=== PATIENT | female | born 1955 | race Caucasian/White ===

== ENCOUNTER 2018-02-26 06:36 | Inpatient (IN) | payer MEDICAID ==
[~2018-02-26] VITALS: Ht 154.9 cm; Wt 80.6 kg
[~2018-02-26 06:36] MED LIST: ALBU18HF INH; ALBU6.7H INH; AMOX500T MT; ARIP5TAB13 PO; ATOR10TA PO; BACI28.42 TP; CEFD300C37 PO; CETI10TA18 PO; DOXY100T PO; ESCI20TA PO; FLUT9.9S NAS; GLIP5TAB10 PO; GUAI600T31 PO; IBUP200T49 PO; LEVO750T26 PO; LISI10TA PO; METF500T4 PO; OXYC10TA47 PO; OXYC5TAB3 PO; OXYGEN; PRED10TA PO; PRED20TA PO; TIOT18CA INH; TRAM50TA2 PO
[2018-02-26] MEDS ORDERED: methylPREDNISolone SOD SUCC 125 MG/2 ML IVP ONE (07:00)
[2018-02-26] MEDS ORDERED: SODIUM CHLORIDE FLUSH 10ML SYR IVF ONE (07:00)
[2018-02-26] MEDS ORDERED: MAGNESIUM SULFATE PMX 2GM/50ML 50 ML IV ONE (07:00)
[2018-02-26] MEDS ORDERED: methylPREDNISolone SOD SUCC 125 MG/2 ML ONE (07:35)
[2018-02-26 07:45] LABS: MEAN CORPUSCULAR HEMOGLOBIN 25.8 pg (27.0-34.8); MEAN CORPUSCULAR HGB CONC 32.7 g/dL (32.4-35.8); MEAN CORPUSCULAR VOLUME 78.9 fL (80-100); MEAN PLATELET VOLUME 8.4 fL (7.4-10.4); PLATELET COUNT 221 x10^3/uL (130-400); RED BLOOD COUNT 5.04 x10^6/uL (3.82-5.3); RED CELL DISTRIBUTION WIDTH 16.3 % (9.6-15.2)
[2018-02-26 07:55] LABS: FIO2 40 %
[2018-02-26 07:56] LABS: D-DIMER 0.79 ug/mlFEU (0.00-0.52); INTERNATIONAL NORMALIZED RATIO 1.16 (0.93-1.1)
[2018-02-26 07:59] LABS: ANION GAP 10 mmol/L (5-15); CALCIUM 8.5 mg/dL (8.5-10.1); CHLORIDE 95 mmol/L (98-107); CREATININE 0.83 mg/dL (0.55-1.02)
[2018-02-26 08:02] LABS: TROPONIN I 0.036 ng/mL (0.000-0.045)
[2018-02-26 08:10] LABS: BASOPHILS % (AUTO) 0 % (0-1); EOSINOPHILS % (AUTO) 0 % (1-7); LYMPHOCYTES # (AUTO) 0.97 x10^3/uL (1-3.4); LYMPHOCYTES % (AUTO) 6 % (22-44); MD SCAN; MONOCYTES # (AUTO) 1.33 x10^3/uL (0.2-0.8); MONOCYTES % (AUTO) 8 % (2-9); NEUTROPHILS # (AUTO) 14.81 x10^3/uL (1.8-6.8); NEUTROPHILS % (AUTO) 87 % (42-75)
[2018-02-26] MEDS ORDERED: FENTANYL PF 100 MCG/2ML ONE (08:59)
[2018-02-26] MEDS ORDERED: ENALAPRILAT 1.25 MG/ML, 2ML IVPush PRN (09:00)
[2018-02-26] MEDS ORDERED: POLYETHYLENE GLYCOL 17 GM PACKET PO PRN (09:00)
[2018-02-26] MEDS ORDERED: PROMETHAZINE 25 MG/ML, 1ML IM PRN (09:00)
[2018-02-26] MEDS: ENOXAPARIN 40 MG/0.4 ML SQ SCH (09:00)
[2018-02-26] MEDS ORDERED: ONDANSETRON ODT 4 MG PO PRN (09:00)
[2018-02-26] MEDS ORDERED: BISACODYL 10 MG SUPP PR PRN (09:00)
[2018-02-26] MEDS ORDERED: OMNIPAQUE 350 MG/ML, 100ML BOTTLE ONE (09:20)
[2018-02-26] MEDS ORDERED: FENTANYL PF 100 MCG/2ML IV ONE (09:30)
[2018-02-26] MEDS ORDERED: ACETAMINOPHEN 500 MG TABLET PO ONE (09:30)
[2018-02-26] MEDS ORDERED: ALBUTEROL/IPRATROPIUM 2.5MG/0.5MG, 3 ML NPPB PRN (10:00)
[2018-02-26] MEDS: DOXYCYCLINE 100 MG in DEXTROSE 5% 250 ML IV SCH ×2 (11:59→20:56)
[2018-02-26] MEDS: NS + 20MEQ KCL 1,000 ML IV SCH (11:59)
[2018-02-26] MEDS: ALBUTEROL/IPRATROPIUM 2.5MG/0.5MG, 3 ML NPPB SCH ×5 (12:00→23:55)
[2018-02-26] MEDS: methylPREDNISolone SOD SUCC 125 MG/2 ML IVPush SCH ×3 (12:16→21:01)
[2018-02-26] MEDS: FAMOTIDINE 20 MG/2 ML IVPush SCH ×2 (12:16→21:01)
[2018-02-26] MEDS: NICOTINE 14MG/24 HR PATCH.TD24 TD SCH (12:16)
[2018-02-26] MEDS: SENNA/DOCUSATE TABLET PO SCH (12:16)
[2018-02-26] MEDS: CEFTRIAXONE PMX 1GM/50ML 50 ML IV SCH (16:36)
[2018-02-27] MEDS: ALBUTEROL/IPRATROPIUM 2.5MG/0.5MG, 3 ML NPPB SCH ×5 (02:24→20:10)
[2018-02-27] MEDS: methylPREDNISolone SOD SUCC 125 MG/2 ML IVPush SCH ×2 (03:59→09:07)
[2018-02-27 04:46] LABS: MEAN CORPUSCULAR HEMOGLOBIN 26.6 pg (27.0-34.8); MEAN CORPUSCULAR VOLUME 80.6 fL (80-100); PLATELET COUNT 267 x10^3/uL (130-400); RED BLOOD COUNT 4.83 x10^6/uL (3.82-5.3); RED CELL DISTRIBUTION WIDTH 16.1 % (9.6-15.2)
[2018-02-27 04:49] LABS: ALANINE AMINOTRANSFERASE 16 U/L (12-78); ALBUMIN 2.7 g/dL (3.4-5.0); ANION GAP 8 mmol/L (5-15); CALCIUM 8.5 mg/dL (8.5-10.1); CHLORIDE 102 mmol/L (98-107); CREATININE 1.13 mg/dL (0.55-1.02)
[2018-02-27 04:51] LABS: ALKALINE PHOSPHATASE 124 U/L (45-117); BILIRUBIN,TOTAL 0.3 mg/dL (0.2-1.0); TOTAL PROTEIN 7.2 g/dL (6.4-8.2)
[2018-02-27] MEDS: NS + 20MEQ KCL 1,000 ML IV SCH ×2 (05:14→17:03)
[2018-02-27 05:36] LABS: BASOPHILS # (AUTO) 0.01 x10^3/uL (0-0.1); BASOPHILS % (AUTO) 0 % (0-1); EOSINOPHILS % (AUTO) 0 % (1-7); LYMPHOCYTES # (AUTO) 0.46 x10^3/uL (1-3.4); LYMPHOCYTES % (AUTO) 3 % (22-44); MD SCAN; MONOCYTES # (AUTO) 0.34 x10^3/uL (0.2-0.8); MONOCYTES % (AUTO) 2 % (2-9); NEUTROPHILS # (AUTO) 16.34 x10^3/uL (1.8-6.8); NEUTROPHILS % (AUTO) 95 % (42-75)
[2018-02-27] MEDS: ENOXAPARIN 40 MG/0.4 ML SQ SCH (09:07)
[2018-02-27] MEDS: FAMOTIDINE 20 MG/2 ML IVPush SCH ×2 (09:07→21:17)
[2018-02-27] MEDS: DOXYCYCLINE 100 MG in DEXTROSE 5% 250 ML IV SCH ×2 (09:08→21:39)
[2018-02-27] MEDS: SENNA/DOCUSATE TABLET PO SCH (09:08)
[2018-02-27] MEDS: NICOTINE 14MG/24 HR PATCH.TD24 TD SCH (09:08)
[2018-02-27] MEDS: LORazepam 2 MG/ML, 1ML IVPush PRN ×2 (11:29→19:43)
[2018-02-27] MEDS: CEFTRIAXONE PMX 1GM/50ML 50 ML IV SCH (14:08)
[2018-02-27] MEDS: methylPREDNISolone SOD SUCC 40 MG/ML IVPush SCH ×2 (15:32→21:17)
[2018-02-27] MEDS: INSULIN LISPRO 100 UNITS/ML, PEN SQ-INSULIN SCH ×2 (17:02→21:21)
[2018-02-27 17:22] VITALS: BP 116/65
[2018-02-27 19:18] VITALS: BP 135/79
[2018-02-27] MEDS: GUAIFENESIN/DM 200-20MG, 10ML UDC PO PRN (19:43)
[2018-02-27] MEDS: INSULIN GLARGINE 100 UNITS/ML, PEN SQ-INSULIN SCH (21:20)
[2018-02-28 00:33] LABS: MICROSCOPIC INDICATED
[2018-02-28 00:45] LABS: CULTURE INDICATED? YES
[2018-02-28 00:52] VITALS: BP 154/84
[2018-02-28] MEDS: GUAIFENESIN/DM 200-20MG, 10ML UDC PO PRN (01:42)
[2018-02-28] MEDS: LORazepam 2 MG/ML, 1ML IVPush PRN ×3 (01:42→10:50)
[2018-02-28] MEDS: ALBUTEROL/IPRATROPIUM 2.5MG/0.5MG, 3 ML NPPB SCH ×6 (02:00→22:00)
[2018-02-28] MEDS: NS + 20MEQ KCL 1,000 ML IV SCH (03:00)
[2018-02-28] MEDS: methylPREDNISolone SOD SUCC 40 MG/ML IVPush SCH ×2 (03:06→09:19)
[2018-02-28 06:03] LABS: ANION GAP 4 mmol/L (5-15); CALCIUM 9.3 mg/dL (8.5-10.1); CHLORIDE 102 mmol/L (98-107); CREATININE 0.68 mg/dL (0.55-1.02)
[2018-02-28 06:56] VITALS: BP 160/90
[2018-02-28 07:47] LABS: MEAN CORPUSCULAR HEMOGLOBIN 26.7 pg (27.0-34.8); MEAN CORPUSCULAR HGB CONC 33.1 g/dL (32.4-35.8); MEAN CORPUSCULAR VOLUME 80.7 fL (80-100); MEAN PLATELET VOLUME 8.5 fL (7.4-10.4); PLATELET COUNT 250 x10^3/uL (130-400); RED CELL DISTRIBUTION WIDTH 16.1 % (9.6-15.2)
[2018-02-28 07:57] LABS: BASOPHILS # (AUTO) 0.02 x10^3/uL (0-0.1); BASOPHILS % (AUTO) 0 % (0-1); EOSINOPHILS % (AUTO) 0 % (1-7); LYMPHOCYTES % (AUTO) 3 % (22-44); MD SCAN; MONOCYTES # (AUTO) 0.27 x10^3/uL (0.2-0.8); MONOCYTES % (AUTO) 2 % (2-9); NEUTROPHILS # (AUTO) 15.28 x10^3/uL (1.8-6.8); NEUTROPHILS % (AUTO) 95 % (42-75)
[2018-02-28] MEDS: SENNA/DOCUSATE TABLET PO SCH (09:00)
[2018-02-28] MEDS: FAMOTIDINE 20 MG/2 ML IVPush SCH (09:19)
[2018-02-28] MEDS: DOXYCYCLINE 100 MG in DEXTROSE 5% 250 ML IV SCH (09:19)
[2018-02-28] MEDS: ENOXAPARIN 40 MG/0.4 ML SQ SCH (09:19)
[2018-02-28] MEDS: NICOTINE 14MG/24 HR PATCH.TD24 TD SCH (09:19)
[2018-02-28] MEDS: INSULIN GLARGINE 100 UNITS/ML, PEN SQ-INSULIN SCH ×2 (09:20→21:33)
[2018-02-28] MEDS: INSULIN LISPRO 100 UNITS/ML, PEN SQ-INSULIN SCH ×4 (09:20→21:33)
[2018-02-28 13:03] VITALS: BP 154/83
[2018-02-28] MEDS ORDERED: VANCOMYCIN PER PHARMACY MC PRN (16:30)
[2018-02-28] MEDS: ALPRazolam 1MG TABLET PO PRN (16:38)
[2018-02-28] MEDS: CEFTRIAXONE PMX 1GM/50ML 50 ML IV SCH (16:40)
[2018-02-28] MEDS ORDERED: PHARMACOKINETIC MONITORING MC PRN (17:00)
[2018-02-28] MEDS: VANCOMYCIN 1,500 MG in SODIUM CHLORIDE 0.9% 250 ML IV SCH (17:38)
[2018-02-28 18:50] VITALS: BP 151/91
[2018-03-01] MEDS: GUAIFENESIN/DM 200-20MG, 10ML UDC PO PRN (01:28)
[2018-03-01 01:46] VITALS: BP 143/81
[2018-03-01 05:47] LABS: BASOPHILS % (AUTO) 0 % (0-1); EOSINOPHILS % (AUTO) 0 % (1-7); LYMPHOCYTES # (AUTO) 0.58 x10^3/uL (1-3.4); LYMPHOCYTES % (AUTO) 5 % (22-44); MD NO; MEAN CORPUSCULAR HEMOGLOBIN 26.1 pg (27.0-34.8); MEAN CORPUSCULAR HGB CONC 32.2 g/dL (32.4-35.8); MEAN CORPUSCULAR VOLUME 81.1 fL (80-100); MEAN PLATELET VOLUME 8.3 fL (7.4-10.4); MONOCYTES # (AUTO) 0.38 x10^3/uL (0.2-0.8); MONOCYTES % (AUTO) 3 % (2-9); NEUTROPHILS # (AUTO) 10.67 x10^3/uL (1.8-6.8); NEUTROPHILS % (AUTO) 92 % (42-75); PLATELET COUNT 267 x10^3/uL (130-400); RED BLOOD COUNT 4.63 x10^6/uL (3.82-5.3); RED CELL DISTRIBUTION WIDTH 16.4 % (9.6-15.2)
[2018-03-01] MEDS: ALPRazolam 1MG TABLET PO PRN ×3 (06:29→23:19)
[2018-03-01 06:53] VITALS: BP 147/85
[2018-03-01] MEDS: ALBUTEROL/IPRATROPIUM 2.5MG/0.5MG, 3 ML NPPB SCH ×5 (07:03→21:47)
[2018-03-01] MEDS: INSULIN LISPRO 100 UNITS/ML, PEN SQ-INSULIN SCH ×4 (08:07→21:35)
[2018-03-01] MEDS: ENOXAPARIN 40 MG/0.4 ML SQ SCH (08:08)
[2018-03-01] MEDS: NICOTINE 14MG/24 HR PATCH.TD24 TD SCH (08:08)
[2018-03-01] MEDS: INSULIN GLARGINE 100 UNITS/ML, PEN SQ-INSULIN SCH ×2 (08:08→21:35)
[2018-03-01] MEDS: SENNA/DOCUSATE TABLET PO SCH (08:08)
[2018-03-01] MEDS: VANCOMYCIN 1,500 MG in SODIUM CHLORIDE 0.9% 250 ML IV SCH (11:00)
[2018-03-01 12:44] VITALS: BP 122/67
[2018-03-01] MEDS: CEFTRIAXONE PMX 1GM/50ML 50 ML IV SCH (14:47)
[2018-03-01 20:15] VITALS: BP 134/73
[2018-03-01] MEDS: ACETAMINOPHEN 325 MG TABLET PO PRN (23:19)
[2018-03-02 00:28] VITALS: BP 119/71
[2018-03-02] MEDS: ALBUTEROL/IPRATROPIUM 2.5MG/0.5MG, 3 ML NPPB SCH ×5 (06:00→22:00)
[2018-03-02] MEDS: INSULIN LISPRO 100 UNITS/ML, PEN SQ-INSULIN SCH ×4 (07:00→21:04)
[2018-03-02 07:14] VITALS: BP 121/75
[2018-03-02] MEDS: PIPERACILLIN/TAZO/PMX 4.5GM 100 ML IV SCH ×3 (07:25→23:12)
[2018-03-02] MEDS: NICOTINE 14MG/24 HR PATCH.TD24 TD SCH (08:41)
[2018-03-02] MEDS: SENNA/DOCUSATE TABLET PO SCH (08:42)
[2018-03-02] MEDS: INSULIN GLARGINE 100 UNITS/ML, PEN SQ-INSULIN SCH ×2 (08:42→21:04)
[2018-03-02] MEDS: ENOXAPARIN 40 MG/0.4 ML SQ SCH (08:42)
[2018-03-02 12:25] VITALS: BP 134/76
[2018-03-02 19:04] VITALS: BP 130/73
[2018-03-02] MEDS: ACETAMINOPHEN 325 MG TABLET PO PRN (20:47)
[2018-03-03 00:32] VITALS: BP 116/72
[2018-03-03 06:18] LABS: BASOPHILS # (AUTO) 0.02 x10^3/uL (0-0.1); BASOPHILS % (AUTO) 0 % (0-1); EOSINOPHILS # (AUTO) 0.08 x10^3/uL (0-0.4); EOSINOPHILS % (AUTO) 1 % (1-7); LYMPHOCYTES # (AUTO) 1.02 x10^3/uL (1-3.4); LYMPHOCYTES % (AUTO) 14 % (22-44); MD NO; MEAN CORPUSCULAR HEMOGLOBIN 26.2 pg (27.0-34.8); MEAN CORPUSCULAR HGB CONC 32.5 g/dL (32.4-35.8); MEAN CORPUSCULAR VOLUME 80.8 fL (80-100); MEAN PLATELET VOLUME 7.7 fL (7.4-10.4); MONOCYTES # (AUTO) 0.34 x10^3/uL (0.2-0.8); MONOCYTES % (AUTO) 5 % (2-9); NEUTROPHILS # (AUTO) 5.97 x10^3/uL (1.8-6.8); NEUTROPHILS % (AUTO) 80 % (42-75); PLATELET COUNT 292 x10^3/uL (130-400); RED BLOOD COUNT 5.03 x10^6/uL (3.82-5.3); RED CELL DISTRIBUTION WIDTH 16.5 % (9.6-15.2)
[2018-03-03 06:33] VITALS: BP 118/73
[2018-03-03] MEDS: ALBUTEROL/IPRATROPIUM 2.5MG/0.5MG, 3 ML NPPB SCH ×5 (06:47→21:58)
[2018-03-03] MEDS: INSULIN LISPRO 100 UNITS/ML, PEN SQ-INSULIN SCH ×4 (07:00→21:00)
[2018-03-03] MEDS: PIPERACILLIN/TAZO/PMX 4.5GM 100 ML IV SCH ×2 (07:20→16:45)
[2018-03-03] MEDS: ENOXAPARIN 40 MG/0.4 ML SQ SCH (08:49)
[2018-03-03] MEDS: NICOTINE 14MG/24 HR PATCH.TD24 TD SCH (08:50)
[2018-03-03] MEDS: INSULIN GLARGINE 100 UNITS/ML, PEN SQ-INSULIN SCH ×2 (08:50→22:10)
[2018-03-03] MEDS: SENNA/DOCUSATE TABLET PO SCH (08:50)
[2018-03-03 14:08] VITALS: BP 147/75
[2018-03-03 19:23] VITALS: BP 136/72
[2018-03-03] MEDS: ACETAMINOPHEN 325 MG TABLET PO PRN (20:02)
[2018-03-04] MEDS: PIPERACILLIN/TAZO/PMX 4.5GM 100 ML IV SCH (00:52)
[2018-03-04 00:58] VITALS: BP 127/75
[2018-03-04] MEDS: ALBUTEROL/IPRATROPIUM 2.5MG/0.5MG, 3 ML NPPB SCH ×3 (06:00→14:00)
[2018-03-04 06:45] VITALS: BP 121/74
[2018-03-04] MEDS ORDERED: CEFD300C37 PO (06:56)
[2018-03-04] MEDS: NICOTINE 14MG/24 HR PATCH.TD24 TD SCH (08:54)
[2018-03-04] MEDS: ENOXAPARIN 40 MG/0.4 ML SQ SCH (08:55)
[2018-03-04] MEDS: INSULIN LISPRO 100 UNITS/ML, PEN SQ-INSULIN SCH ×2 (08:55→11:00)
[2018-03-04] MEDS: INSULIN GLARGINE 100 UNITS/ML, PEN SQ-INSULIN SCH (08:56)
[2018-03-04] MEDS: SENNA/DOCUSATE TABLET PO SCH (09:00)
[2018-03-04] MEDS ORDERED: CEFDINIR 300 MG CAPSULE PO SCH (09:00)
== END 2018-03-04 15:18 | disposition home or self-care (01) | DRG 189 ==
LOC: ED 07:55 → EDIP 08:00 → ED 08:14 → CCU 09:24 → 3NE 02-27 16:51
PROVIDERS: ADMIT Internal Medicine; ATTEND Internal Medicine
PROC: 5A09357 Assistance with Respiratory Ventilation, Less than 24 Consecutive Hours, Continuous Positive Airway Pressure (ICD-10-PCS; principal; 2018-02-26)
DX: J96.20 Acute and chronic respiratory failure, unspecified whether with hypoxia or hypercapnia (principal); N17.0 Acute kidney failure with tubular necrosis; Z99.11 Dependence on respirator [ventilator] status; R78.81 Bacteremia; I27.20 Pulmonary hypertension, unspecified; E66.01 Morbid (severe) obesity due to excess calories; E87.1 Hypo-osmolality and hyponatremia; J44.1 Chronic obstructive pulmonary disease with (acute) exacerbation; B19.20 Unspecified viral hepatitis C without hepatic coma; E11.9 Type 2 diabetes mellitus without complications; E87.6 Hypokalemia; F12.90 Cannabis use, unspecified, uncomplicated; F17.210 Nicotine dependence, cigarettes, uncomplicated; F32.9 Major depressive disorder, single episode, unspecified; G47.33 Obstructive sleep apnea (adult) (pediatric); G89.29 Other chronic pain; I10 Essential (primary) hypertension; K43.9 Ventral hernia without obstruction or gangrene; Z80.1 Family history of malignant neoplasm of trachea, bronchus and lung; Z82.49 Family history of ischemic heart disease and other diseases of the circulatory system; Z99.3 Dependence on wheelchair; Z99.81 Dependence on supplemental oxygen; Z68.33 Body mass index [BMI] 33.0-33.9, adult
CPT/HCPCS: 36415; 36600; 71045; 71275; 74177; 80048; 80053; 81001; 82040; 82803; 82947; 82962; 83605; 83880; 84484; 85025; 85379; 85610; 87040; 87077; 87081; 87086; 87181; 87186; 93005; 93306; 94640; 94660; 96374; 96375; 96376; J0696; J1650; J2543; J3010; J3370; J3480; J7060; J7620; Q9967; J1815; J2060; J2920; J2930; J3475; J7050; S0028

== ENCOUNTER 2018-04-04 13:16 | Emergency (ER) | payer MEDICAID ==
[~2018-04-04] VITALS: Ht 154.9 cm; Wt 83.0 kg
[~2018-04-04 13:16] MED LIST changes: -METF500T4 PO; +METF500T5 PO
[2018-04-04] MEDS ORDERED: DIPHENHYDRAMINE 50 MG/ML, 1ML IVPush ONE (13:30)
[2018-04-04] MEDS ORDERED: KETOROLAC 30 MG/1 ML IVPush ONE (13:30)
[2018-04-04] MEDS ORDERED: METHOCARBAMOL 750 MG TABLET PO ONE (13:30)
[2018-04-04] MEDS ORDERED: DIPHENHYDRAMINE 50 MG/ML, 1ML ONE (13:36)
[2018-04-04] MEDS ORDERED: METHOCARBAMOL 750 MG TABLET ONE (13:36)
[2018-04-04] MEDS ORDERED: KETOROLAC 30 MG/1 ML ONE (13:36)
[2018-04-04 13:53] LABS: BASOPHILS # (AUTO) 0.02 x10^3/uL (0-0.1); BASOPHILS % (AUTO) 0 % (0-1); EOSINOPHILS # (AUTO) 0.05 x10^3/uL (0-0.4); EOSINOPHILS % (AUTO) 1 % (1-7); LYMPHOCYTES # (AUTO) 1.63 x10^3/uL (1-3.4); LYMPHOCYTES % (AUTO) 28 % (22-44); MD NO; MEAN CORPUSCULAR HEMOGLOBIN 25.9 pg (27.0-34.8); MEAN CORPUSCULAR HGB CONC 32.8 g/dL (32.4-35.8); MEAN CORPUSCULAR VOLUME 78.9 fL (80-100); MEAN PLATELET VOLUME 8.4 fL (7.4-10.4); MONOCYTES # (AUTO) 0.49 x10^3/uL (0.2-0.8); MONOCYTES % (AUTO) 8 % (2-9); NEUTROPHILS # (AUTO) 3.72 x10^3/uL (1.8-6.8); NEUTROPHILS % (AUTO) 63 % (42-75); PLATELET COUNT 280 x10^3/uL (130-400); RED BLOOD COUNT 5.35 x10^6/uL (3.82-5.3); RED CELL DISTRIBUTION WIDTH 16.4 % (9.6-15.2)
[2018-04-04 13:58] LABS: INTERNATIONAL NORMALIZED RATIO 0.94 (0.93-1.1); PROTHROMBIN TIME 9.8 Seconds (9.6-11.5)
[2018-04-04 14:01] LABS: ALANINE AMINOTRANSFERASE 28 U/L (12-78); ALBUMIN 3.5 g/dL (3.4-5.0); ANION GAP 4 mmol/L (5-15); CALCIUM 8.7 mg/dL (8.5-10.1); CHLORIDE 106 mmol/L (98-107); CREATININE 0.63 mg/dL (0.55-1.02)
[2018-04-04 14:06] LABS: ALKALINE PHOSPHATASE 132 U/L (45-117); BILIRUBIN,TOTAL 0.2 mg/dL (0.2-1.0); TROPONIN I < 0.015 ng/mL (0.000-0.045)
[2018-04-04] MEDS ORDERED: OMNIPAQUE 350 MG/ML, 100ML BOTTLE ONE (14:33)
[2018-04-04 15:24] VITALS: BP 157/90
== END 2018-04-04 15:26 | disposition home or self-care (01) ==
LOC: ED 15:01
DX: M54.6 Pain in thoracic spine (principal); Z86.73 Personal history of transient ischemic attack (TIA), and cerebral infarction without residual deficits
CPT/HCPCS: 36415; 71275; 80053; 84484; 85025; 85610; 85730; 93005; 96374; 96375; 99285; J1200; J1885; Q9967

== ENCOUNTER 2018-04-08 21:12 | Inpatient (IN) | payer MEDICAID ==
[~2018-04-08] VITALS: Ht 154.9 cm; Wt 80.9 kg
[2018-04-08] MEDS ORDERED: ONDANSETRON 2MG/ML, 2ML ONE (21:41)
[2018-04-08] MEDS ORDERED: MORPHINE SULFATE 4 MG/ML, 1ML ONE (21:41)
[2018-04-08] MEDS ORDERED: ONDANSETRON 2MG/ML, 2ML IVPush ONE (22:00)
[2018-04-08] MEDS ORDERED: MORPHINE SULFATE 4 MG/ML, 1ML IVPush PRN (22:00)
[2018-04-08] MEDS ORDERED: ALBUTEROL SULFATE 2.5 MG/3 ML NPPB ONE (22:00)
[2018-04-08 22:03] LABS: ALANINE AMINOTRANSFERASE 16 U/L (12-78); ALBUMIN 3.7 g/dL (3.4-5.0); ANION GAP 8 mmol/L (5-15); CALCIUM 9.5 mg/dL (8.5-10.1); CHLORIDE 94 mmol/L (98-107); CREATININE 0.66 mg/dL (0.55-1.02)
[2018-04-08] MEDS ORDERED: ALBUTEROL SULFATE 2.5 MG/3 ML ONE (22:05)
[2018-04-08 22:10] LABS: ALKALINE PHOSPHATASE 116 U/L (45-117); BILIRUBIN,TOTAL 0.7 mg/dL (0.2-1.0); TOTAL PROTEIN 7.7 g/dL (6.4-8.2); TROPONIN I < 0.015 ng/mL (0.000-0.045)
[2018-04-08 22:21] LABS: BASOPHILS # (AUTO) 0.05 x10^3/uL (0-0.1); BASOPHILS % (AUTO) 1 % (0-1); EOSINOPHILS # (AUTO) 0.03 x10^3/uL (0-0.4); EOSINOPHILS % (AUTO) 0 % (1-7); LYMPHOCYTES # (AUTO) 1.15 x10^3/uL (1-3.4); LYMPHOCYTES % (AUTO) 11 % (22-44); MD SCAN; MEAN CORPUSCULAR HEMOGLOBIN 25.9 pg (27.0-34.8); MEAN CORPUSCULAR HGB CONC 33.2 g/dL (32.4-35.8); MEAN PLATELET VOLUME 8.5 fL (7.4-10.4); MONOCYTES # (AUTO) 0.56 x10^3/uL (0.2-0.8); MONOCYTES % (AUTO) 5 % (2-9); NEUTROPHILS % (AUTO) 84 % (42-75); PLATELET COUNT 321 x10^3/uL (130-400); RED BLOOD COUNT 5.87 x10^6/uL (3.82-5.3); RED CELL DISTRIBUTION WIDTH 16.4 % (9.6-15.2)
[2018-04-08 23:33] LABS: MICROSCOPIC NOT IND
[2018-04-08 23:42] LABS: CULTURE INDICATED? NO
[2018-04-08] MEDS ORDERED: SODIUM CHLORIDE 0.9% 1,000 ML IV ONE (23:57)
[2018-04-09] MEDS ORDERED: ONDANSETRON 2MG/ML, 2ML IVPush PRN
[2018-04-09] MEDS ORDERED: PANTOPRAZOLE 40 MG IV IVPush ONE
[2018-04-09] MEDS ORDERED: MORPHINE SULFATE 4 MG/ML, 1ML IVPush PRN
[2018-04-09] MEDS ORDERED: OMNIPAQUE 350 MG/ML, 100ML BOTTLE ONE (00:02)
[2018-04-09] MEDS ORDERED: FLUT1DIS3 INH (00:02)
[2018-04-09] MEDS ORDERED: TIOT18CA INH (00:03)
[2018-04-09] MEDS ORDERED: GUAIFENESIN/DM 200-20MG, 10ML UDC PO PRN (00:30)
[2018-04-09] MEDS ORDERED: ACETAMINOPHEN 325 MG TABLET PO PRN (00:30)
[2018-04-09] MEDS ORDERED: hydrALAzine 20 MG/ML, 1ML IVPush PRN (00:30)
[2018-04-09] MEDS ORDERED: ALBUTEROL SULFATE 2.5 MG/3 ML HHN PRN ×2 (00:30→01:24)
[2018-04-09 01:22] VITALS: BP 106/61
[2018-04-09] MEDS: SODIUM CHLORIDE 0.9% 1,000 ML IV SCH ×3 (01:58→19:46)
[2018-04-09] MEDS: SUCRALFATE 1 GM/10 ML UDC PO SCH ×5 (02:14→21:28)
[2018-04-09] MEDS: morphine SULFATE 10 MG/ML, 1ML IVPush PRN ×6 (02:15→22:03)
[2018-04-09] MEDS: ONDANSETRON 2MG/ML, 2ML IVPush PRN ×3 (03:48→18:40)
[2018-04-09] MEDS: ALBUTEROL/IPRATROPIUM 2.5MG/0.5MG, 3 ML NPPB SCH ×5 (04:09→20:10)
[2018-04-09 05:19] LABS: BASOPHILS # (AUTO) 0.03 x10^3/uL (0-0.1); BASOPHILS % (AUTO) 0 % (0-1); EOSINOPHILS # (AUTO) 0.02 x10^3/uL (0-0.4); EOSINOPHILS % (AUTO) 0 % (1-7); LYMPHOCYTES # (AUTO) 1.67 x10^3/uL (1-3.4); LYMPHOCYTES % (AUTO) 16 % (22-44); MD NO; MEAN CORPUSCULAR HEMOGLOBIN 26.1 pg (27.0-34.8); MEAN CORPUSCULAR VOLUME 78.9 fL (80-100); MEAN PLATELET VOLUME 8.3 fL (7.4-10.4); MONOCYTES # (AUTO) 0.76 x10^3/uL (0.2-0.8); MONOCYTES % (AUTO) 7 % (2-9); NEUTROPHILS # (AUTO) 7.91 x10^3/uL (1.8-6.8); NEUTROPHILS % (AUTO) 76 % (42-75); PLATELET COUNT 290 x10^3/uL (130-400); RED BLOOD COUNT 5.35 x10^6/uL (3.82-5.3); RED CELL DISTRIBUTION WIDTH 16.1 % (9.6-15.2)
[2018-04-09 05:31] LABS: ANION GAP 6 mmol/L (5-15); CALCIUM 9.2 mg/dL (8.5-10.1); CHLORIDE 94 mmol/L (98-107)
[2018-04-09 05:33] LABS: CREATININE 0.78 mg/dL (0.55-1.02)
[2018-04-09 07:10] VITALS: BP 96/58
[2018-04-09] MEDS: PANTOPRAZOLE 40 MG IV IVPush SCH ×2 (07:51→21:28)
[2018-04-09] MEDS: NICOTINE 21 MG/24 HR PATCH.TD24 TD SCH (07:52)
[2018-04-09] MEDS ORDERED: IPRATROPIUM 0.5 MG/2.5 ML INHA HHN SCH (09:00)
[2018-04-09] MEDS: FLUTICASONE/VILANTEROL 100-25MCG/INH INH SCH (09:00)
[2018-04-09 13:08] VITALS: BP 103/62
[2018-04-09 19:37] VITALS: BP 122/66
[2018-04-10 00:37] VITALS: BP 117/69
[2018-04-10] MEDS: morphine SULFATE 10 MG/ML, 1ML IVPush PRN ×6 (01:57→22:58)
[2018-04-10] MEDS: SODIUM CHLORIDE 0.9% 1,000 ML IV SCH (04:46)
[2018-04-10] MEDS: ALBUTEROL/IPRATROPIUM 2.5MG/0.5MG, 3 ML NPPB SCH ×4 (07:00→19:39)
[2018-04-10 07:50] VITALS: BP 106/67
[2018-04-10] MEDS: PANTOPRAZOLE 40 MG IV IVPush SCH ×2 (08:05→21:01)
[2018-04-10] MEDS: SUCRALFATE 1 GM/10 ML UDC PO SCH ×4 (08:05→21:01)
[2018-04-10] MEDS: NICOTINE 21 MG/24 HR PATCH.TD24 TD SCH (08:08)
[2018-04-10] MEDS: FLUTICASONE/VILANTEROL 100-25MCG/INH INH SCH (08:14)
[2018-04-10 12:09] VITALS: BP 107/58
[2018-04-10 18:52] VITALS: BP 102/57
[2018-04-11 01:54] VITALS: BP 112/66
[2018-04-11] MEDS: morphine SULFATE 10 MG/ML, 1ML IVPush PRN ×6 (02:55→22:30)
[2018-04-11 06:09] LABS: CALCIUM 8.7 mg/dL (8.5-10.1); CHLORIDE 103 mmol/L (98-107)
[2018-04-11 06:12] LABS: ALBUMIN 2.9 g/dL (3.4-5.0); ANION GAP 4 mmol/L (5-15); CREATININE 0.53 mg/dL (0.55-1.02)
[2018-04-11] MEDS: ALBUTEROL/IPRATROPIUM 2.5MG/0.5MG, 3 ML NPPB SCH ×4 (07:00→19:07)
[2018-04-11 07:01] VITALS: BP 105/71
[2018-04-11] MEDS ORDERED: POTASSIUM CHLORIDE 40 MEQ in SODIUM CHLORIDE 0.9% 500 ML IV ONE (07:30)
[2018-04-11] MEDS: NICOTINE 21 MG/24 HR PATCH.TD24 TD SCH (07:43)
[2018-04-11] MEDS: PANTOPRAZOLE 40 MG IV IVPush SCH ×2 (07:43→22:30)
[2018-04-11] MEDS: SUCRALFATE 1 GM/10 ML UDC PO SCH ×4 (07:43→22:30)
[2018-04-11] MEDS: FLUTICASONE/VILANTEROL 100-25MCG/INH INH SCH (07:59)
[2018-04-11] MEDS: POLYETHYLENE GLYCOL 17 GM PACKET PO PRN (10:05)
[2018-04-11 12:59] LABS: BASOPHILS # (AUTO) 0.02 x10^3/uL (0-0.1); BASOPHILS % (AUTO) 0 % (0-1); EOSINOPHILS # (AUTO) 0.06 x10^3/uL (0-0.4); EOSINOPHILS % (AUTO) 1 % (1-7); LYMPHOCYTES # (AUTO) 1.41 x10^3/uL (1-3.4); LYMPHOCYTES % (AUTO) 24 % (22-44); MD NO; MEAN CORPUSCULAR HGB CONC 32.5 g/dL (32.4-35.8); MEAN PLATELET VOLUME 8.2 fL (7.4-10.4); MONOCYTES # (AUTO) 0.44 x10^3/uL (0.2-0.8); MONOCYTES % (AUTO) 7 % (2-9); NEUTROPHILS # (AUTO) 3.99 x10^3/uL (1.8-6.8); NEUTROPHILS % (AUTO) 68 % (42-75); PLATELET COUNT 236 x10^3/uL (130-400); RED BLOOD COUNT 4.45 x10^6/uL (3.82-5.3); RED CELL DISTRIBUTION WIDTH 16.7 % (9.6-15.2)
[2018-04-11 13:42] VITALS: BP 126/70
[2018-04-11 20:04] VITALS: BP 118/66
[2018-04-12 00:31] VITALS: BP 161/81
[2018-04-12] MEDS: morphine SULFATE 10 MG/ML, 1ML IVPush PRN ×2 (02:13→06:52)
[2018-04-12] MEDS: ALBUTEROL/IPRATROPIUM 2.5MG/0.5MG, 3 ML NPPB SCH ×4 (06:35→20:00)
[2018-04-12 06:56] LABS: BASOPHILS # (AUTO) 0.02 x10^3/uL (0-0.1); BASOPHILS % (AUTO) 0 % (0-1); EOSINOPHILS # (AUTO) 0.04 x10^3/uL (0-0.4); EOSINOPHILS % (AUTO) 1 % (1-7); LYMPHOCYTES # (AUTO) 1.26 x10^3/uL (1-3.4); LYMPHOCYTES % (AUTO) 23 % (22-44); MD NO; MEAN CORPUSCULAR HGB CONC 32.6 g/dL (32.4-35.8); MEAN CORPUSCULAR VOLUME 79.8 fL (80-100); MEAN PLATELET VOLUME 8.4 fL (7.4-10.4); MONOCYTES # (AUTO) 0.38 x10^3/uL (0.2-0.8); MONOCYTES % (AUTO) 7 % (2-9); NEUTROPHILS # (AUTO) 3.89 x10^3/uL (1.8-6.8); NEUTROPHILS % (AUTO) 70 % (42-75); PLATELET COUNT 262 x10^3/uL (130-400); RED BLOOD COUNT 4.66 x10^6/uL (3.82-5.3); RED CELL DISTRIBUTION WIDTH 16.6 % (9.6-15.2)
[2018-04-12 07:06] LABS: ALBUMIN 2.8 g/dL (3.4-5.0); CALCIUM 8.9 mg/dL (8.5-10.1); CREATININE 0.92 mg/dL (0.55-1.02)
[2018-04-12 07:16] LABS: ANION GAP 4 mmol/L (5-15); CHLORIDE 99 mmol/L (98-107)
[2018-04-12 07:52] VITALS: BP 119/55
[2018-04-12] MEDS ORDERED: morphine SULFATE 10 MG/ML, 1ML IVPush PRN (09:00)
[2018-04-12] MEDS: FLUTICASONE/VILANTEROL 100-25MCG/INH INH SCH (09:00)
[2018-04-12] MEDS: PANTOPRAZOLE 40 MG IV IVPush SCH ×2 (09:10→20:47)
[2018-04-12] MEDS: SUCRALFATE 1 GM/10 ML UDC PO SCH ×4 (09:10→20:47)
[2018-04-12] MEDS: NICOTINE 21 MG/24 HR PATCH.TD24 TD SCH (09:11)
[2018-04-12] MEDS: FERROUS SULFATE 325 MG TABLET PO SCH ×2 (09:11→20:47)
[2018-04-12] MEDS: SENNA/DOCUSATE TABLET PO PRN ×2 (09:11→20:47)
[2018-04-12] MEDS: POLYETHYLENE GLYCOL 17 GM PACKET PO PRN (09:11)
[2018-04-12] MEDS: MORPHINE SULFATE 4 MG/ML, 1ML IVPush PRN ×3 (11:34→23:09)
[2018-04-12 13:10] VITALS: BP 112/66
[2018-04-12 18:48] VITALS: BP 94/64
[2018-04-12] MEDS: LACTULOSE 10 GM/15 ML UDC PO PRN (20:47)
[2018-04-13 01:38] VITALS: BP 100/66
[2018-04-13] MEDS: MORPHINE SULFATE 4 MG/ML, 1ML IVPush PRN ×4 (04:01→20:29)
[2018-04-13 05:19] LABS: ALBUMIN 2.9 g/dL (3.4-5.0); ANION GAP 5 mmol/L (5-15); CALCIUM 9.1 mg/dL (8.5-10.1); CHLORIDE 98 mmol/L (98-107)
[2018-04-13 05:20] LABS: CREATININE 0.54 mg/dL (0.55-1.02)
[2018-04-13 05:25] LABS: BASOPHILS % (AUTO) 0 % (0-1); EOSINOPHILS # (AUTO) 0.06 x10^3/uL (0-0.4); EOSINOPHILS % (AUTO) 1 % (1-7); LYMPHOCYTES % (AUTO) 21 % (22-44); MD SCAN; MEAN CORPUSCULAR HEMOGLOBIN 26.3 pg (27.0-34.8); MEAN CORPUSCULAR VOLUME 79.8 fL (80-100); MEAN PLATELET VOLUME 9.2 fL (7.4-10.4); MONOCYTES # (AUTO) 0.39 x10^3/uL (0.2-0.8); MONOCYTES % (AUTO) 7 % (2-9); NEUTROPHILS # (AUTO) 4.16 x10^3/uL (1.8-6.8); NEUTROPHILS % (AUTO) 72 % (42-75); PLATELET COUNT 258 x10^3/uL (130-400); RED BLOOD COUNT 4.98 x10^6/uL (3.82-5.3); RED CELL DISTRIBUTION WIDTH 16.8 % (9.6-15.2)
[2018-04-13 06:06] LABS: HEMOGLOBIN A1C 6.9 % (4.2-6.3)
[2018-04-13] MEDS: ALBUTEROL/IPRATROPIUM 2.5MG/0.5MG, 3 ML NPPB SCH ×4 (07:00→20:30)
[2018-04-13 07:35] VITALS: BP 108/68
[2018-04-13] MEDS: FLUTICASONE/VILANTEROL 100-25MCG/INH INH SCH (09:00)
[2018-04-13] MEDS ORDERED: PROPOFOL 10 MG/ML, 20ML ONE (10:01)
[2018-04-13] MEDS ORDERED: HYDROcodone/APAP 7.5-325MG/15ML UDC PO PRN (10:30)
[2018-04-13] MEDS ORDERED: OXYcodone 5 MG/5 ML ORAL.SOL UDC PO PRN (10:30)
[2018-04-13] MEDS ORDERED: ACETAMINOPHEN 325 MG TABLET PO PRN (10:30)
[2018-04-13 11:22] VITALS: BP 103/63
[2018-04-13 12:11] VITALS: BP 133/60
[2018-04-13] MEDS: LACTULOSE 10 GM/15 ML UDC PO PRN ×2 (14:03→20:28)
[2018-04-13] MEDS: CLOTRIMAZOLE TROCHES 10 MG PO SCH ×3 (14:03→20:29)
[2018-04-13] MEDS: SENNA/DOCUSATE TABLET PO PRN ×2 (14:03→20:29)
[2018-04-13] MEDS: PANTOPRAZOLE 40 MG IV IVPush SCH ×2 (14:03→20:28)
[2018-04-13] MEDS: NICOTINE 21 MG/24 HR PATCH.TD24 TD SCH (14:04)
[2018-04-13] MEDS: FERROUS SULFATE 325 MG TABLET PO SCH ×2 (14:04→20:29)
[2018-04-13] MEDS: POLYETHYLENE GLYCOL 17 GM PACKET PO PRN (14:04)
[2018-04-13] MEDS: SUCRALFATE 1 GM/10 ML UDC PO SCH ×2 (17:35→20:28)
[2018-04-13 20:13] VITALS: BP 128/72
[2018-04-14 01:55] VITALS: BP 127/70
[2018-04-14] MEDS: MORPHINE SULFATE 4 MG/ML, 1ML IVPush PRN ×2 (02:28→10:53)
[2018-04-14 05:06] LABS: ALBUMIN 2.9 g/dL (3.4-5.0); ANION GAP 7 mmol/L (5-15); CALCIUM 8.8 mg/dL (8.5-10.1); CHLORIDE 98 mmol/L (98-107)
[2018-04-14] MEDS: CLOTRIMAZOLE TROCHES 10 MG PO SCH ×5 (05:29→21:09)
[2018-04-14] MEDS: ALBUTEROL/IPRATROPIUM 2.5MG/0.5MG, 3 ML NPPB SCH ×4 (06:45→19:14)
[2018-04-14 08:30] VITALS: BP 131/75
[2018-04-14] MEDS: LACTULOSE 10 GM/15 ML UDC PO PRN (10:52)
[2018-04-14] MEDS: SUCRALFATE 1 GM/10 ML UDC PO SCH ×4 (10:52→21:09)
[2018-04-14] MEDS: POLYETHYLENE GLYCOL 17 GM PACKET PO PRN (10:52)
[2018-04-14] MEDS: SENNA/DOCUSATE TABLET PO PRN (10:53)
[2018-04-14] MEDS: FERROUS SULFATE 325 MG TABLET PO SCH ×2 (10:53→21:08)
[2018-04-14] MEDS: PANTOPRAZOLE 40 MG IV IVPush SCH ×2 (10:53→21:09)
[2018-04-14] MEDS: FLUTICASONE/VILANTEROL 100-25MCG/INH INH SCH (10:53)
[2018-04-14 14:30] VITALS: BP 123/64
[2018-04-14] MEDS ORDERED: GADOBUTROL 7.5 MMOL/7.5 ML VIAL ONE (15:07)
[2018-04-14] MEDS: NICOTINE 21 MG/24 HR PATCH.TD24 TD SCH (16:08)
[2018-04-14] MEDS ORDERED: FLUCONAZOLE 200 MG/100 ML 100 ML IV SCH (17:30)
[2018-04-14 19:40] VITALS: BP 112/69
[2018-04-15 01:13] VITALS: BP 129/76
[2018-04-15 05:05] LABS: BASOPHILS # (AUTO) 0.04 x10^3/uL (0-0.1); BASOPHILS % (AUTO) 1 % (0-1); EOSINOPHILS # (AUTO) 0.09 x10^3/uL (0-0.4); EOSINOPHILS % (AUTO) 1 % (1-7); LYMPHOCYTES # (AUTO) 1.44 x10^3/uL (1-3.4); LYMPHOCYTES % (AUTO) 24 % (22-44); MD NO; MEAN CORPUSCULAR HEMOGLOBIN 26.1 pg (27.0-34.8); MEAN CORPUSCULAR HGB CONC 32.6 g/dL (32.4-35.8); MEAN CORPUSCULAR VOLUME 80.1 fL (80-100); MEAN PLATELET VOLUME 8.6 fL (7.4-10.4); MONOCYTES # (AUTO) 0.44 x10^3/uL (0.2-0.8); MONOCYTES % (AUTO) 7 % (2-9); NEUTROPHILS # (AUTO) 3.97 x10^3/uL (1.8-6.8); NEUTROPHILS % (AUTO) 66 % (42-75); PLATELET COUNT 287 x10^3/uL (130-400); RED BLOOD COUNT 4.61 x10^6/uL (3.82-5.3); RED CELL DISTRIBUTION WIDTH 16.5 % (9.6-15.2)
[2018-04-15 05:16] LABS: ANION GAP 6 mmol/L (5-15); CALCIUM 8.9 mg/dL (8.5-10.1); CHLORIDE 97 mmol/L (98-107); CREATININE 0.61 mg/dL (0.55-1.02)
[2018-04-15] MEDS: CLOTRIMAZOLE TROCHES 10 MG PO SCH ×3 (05:57→13:59)
[2018-04-15] MEDS: ALBUTEROL/IPRATROPIUM 2.5MG/0.5MG, 3 ML NPPB SCH ×3 (06:45→14:24)
[2018-04-15 09:11] VITALS: BP 117/73
[2018-04-15] MEDS: FLUTICASONE/VILANTEROL 100-25MCG/INH INH SCH (09:15)
[2018-04-15] MEDS: SUCRALFATE 1 GM/10 ML UDC PO SCH ×2 (09:15→12:15)
[2018-04-15] MEDS: PANTOPRAZOLE 40 MG IV IVPush SCH (09:16)
[2018-04-15] MEDS: FERROUS SULFATE 325 MG TABLET PO SCH (09:16)
[2018-04-15] MEDS: NICOTINE 21 MG/24 HR PATCH.TD24 TD SCH (09:17)
[2018-04-15] MEDS ORDERED: NICO-487 TD (13:49)
[2018-04-15] MEDS ORDERED: OMEP20CA14 PO (13:49)
[2018-04-15] MEDS ORDERED: METH500T97 PO (13:49)
[2018-04-15] MEDS ORDERED: FERR-51 PO (13:49)
[2018-04-15] MEDS ORDERED: SUCR1ORA5 PO (13:49)
[2018-04-15] MEDS ORDERED: SENN1TAB7 PO (13:49)
[2018-04-15] MEDS ORDERED: CLOT10TR PO (13:49)
[2018-04-15] MEDS ORDERED: POLY17PO5 PO (13:49)
[2018-04-15] MEDS ORDERED: ACET325T14 PO (13:49)
== END 2018-04-15 15:41 | disposition home or self-care (01) | DRG 384 ==
LOC: ED 23:59 → SUATTDRO 04-09 00:07 → EDIP 04-09 00:23 → 3NE 04-09 01:18
PROVIDERS: ADMIT Hospitalist; ATTEND Hospitalist
PROC: 0DB68ZX Excision of Stomach, Via Natural or Artificial Opening Endoscopic, Diagnostic (ICD-10-PCS; principal; 2018-04-13 09:00)
DX: K26.9 Duodenal ulcer, unspecified as acute or chronic, without hemorrhage or perforation (principal); E87.1 Hypo-osmolality and hyponatremia; J96.11 Chronic respiratory failure with hypoxia; K29.80 Duodenitis without bleeding; K25.9 Gastric ulcer, unspecified as acute or chronic, without hemorrhage or perforation; D72.829 Elevated white blood cell count, unspecified; E11.9 Type 2 diabetes mellitus without complications; E87.6 Hypokalemia; F12.90 Cannabis use, unspecified, uncomplicated; F17.210 Nicotine dependence, cigarettes, uncomplicated; G47.33 Obstructive sleep apnea (adult) (pediatric); G89.29 Other chronic pain; I10 Essential (primary) hypertension; I27.20 Pulmonary hypertension, unspecified; J44.9 Chronic obstructive pulmonary disease, unspecified; T39.395A Adverse effect of other nonsteroidal anti-inflammatory drugs [NSAID], initial encounter; Y92.89 Other specified places as the place of occurrence of the external cause; K43.9 Ventral hernia without obstruction or gangrene; K59.00 Constipation, unspecified; Z99.81 Dependence on supplemental oxygen; B19.20 Unspecified viral hepatitis C without hepatic coma; E66.9 Obesity, unspecified; Z68.33 Body mass index [BMI] 33.0-33.9, adult
CPT/HCPCS: 36415; 74018; 99285; J7613; J7620; 70450; 72156; 74177; 80048; 80053; 81003; 82040; 82274; 82728; 83036; 83540; 83550; 83690; 83735; 84100; 84484; 85025; 88305; 88342; 93005; 94640; 96374; 96375; A9585; J2405; J2704; J3480; Q9967; C9113; G0461; J1450; J2270; J7030; J7040

== ENCOUNTER 2018-04-22 13:48 | Observation (INO) | payer MEDICAID ==
[~2018-04-22] VITALS: Ht 154.9 cm; Wt 75.9 kg
[~2018-04-22 13:48] MED LIST changes: +ACET325T14 PO; +CLOT10TR PO; +FERR-51 PO; +FLUT1DIS3 INH; +METH500T97 PO; +NICO-487 TD; +OMEP20CA14 PO; +POLY17PO5 PO; +SENN1TAB7 PO; +SUCR1ORA5 PO
[2018-04-22] MEDS ORDERED: ALBUTEROL/IPRATROPIUM 2.5MG/0.5MG, 3 ML ONE ×2 (14:16→16:02)
[2018-04-22] MEDS ORDERED: SODIUM CHLORIDE FLUSH 10ML SYR IVF ONE (14:30)
[2018-04-22] MEDS ORDERED: ALBUTEROL/IPRATROPIUM 2.5MG/0.5MG, 3 ML NPPB ONE ×2 (14:30→16:00)
[2018-04-22] MEDS ORDERED: methylPREDNISolone SOD SUCC 125 MG/2 ML IVP ONE (14:30)
[2018-04-22 14:40] LABS: BASOPHILS # (AUTO) 0.04 x10^3/uL (0-0.1); BASOPHILS % (AUTO) 0 % (0-1); EOSINOPHILS % (AUTO) 1 % (1-7); LYMPHOCYTES # (AUTO) 0.82 x10^3/uL (1-3.4); LYMPHOCYTES % (AUTO) 8 % (22-44); MD NO; MEAN CORPUSCULAR HEMOGLOBIN 26.7 pg (27.0-34.8); MEAN PLATELET VOLUME 8.1 fL (7.4-10.4); MONOCYTES # (AUTO) 0.68 x10^3/uL (0.2-0.8); MONOCYTES % (AUTO) 7 % (2-9); NEUTROPHILS # (AUTO) 8.87 x10^3/uL (1.8-6.8); NEUTROPHILS % (AUTO) 84 % (42-75); PLATELET COUNT 321 x10^3/uL (130-400); RED BLOOD COUNT 4.53 x10^6/uL (3.82-5.3); RED CELL DISTRIBUTION WIDTH 17.4 % (9.6-15.2)
[2018-04-22 14:50] LABS: ALBUMIN 3.1 g/dL (3.4-5.0); ANION GAP 6 mmol/L (5-15); CALCIUM 8.5 mg/dL (8.5-10.1); CHLORIDE 102 mmol/L (98-107)
[2018-04-22] MEDS ORDERED: methylPREDNISolone SOD SUCC 125 MG/2 ML ONE (14:53)
[2018-04-22] MEDS ORDERED: SODIUM CHLORIDE 0.9% 1,000 ML IV SCH (16:47)
[2018-04-22] MEDS ORDERED: GUAIFENESIN/DM 200-20MG, 10ML UDC PO PRN (17:00)
[2018-04-22] MEDS ORDERED: POLYETHYLENE GLYCOL 17 GM PACKET PO PRN (17:00)
[2018-04-22] MEDS ORDERED: ACETAMINOPHEN 325 MG TABLET PO PRN (17:00)
[2018-04-22] MEDS ORDERED: ALBUTEROL SULFATE 2.5 MG/3 ML NPPB PRN (17:00)
[2018-04-22] MEDS ORDERED: ONDANSETRON ODT 4 MG PO PRN (17:00)
[2018-04-22] MEDS ORDERED: BISACODYL 10 MG SUPP PR PRN (17:00)
[2018-04-22] MEDS ORDERED: MAGNESIUM SULFATE PMX 2GM/50ML 50 ML IV ONE ×2 (17:00→20:30)
[2018-04-22] MEDS ORDERED: ENOXAPARIN 40 MG/0.4 ML SQ SCH (17:00)
[2018-04-22] MEDS ORDERED: LABETALOL 5MG/ML, 20ML IVPush PRN (17:00)
[2018-04-22] MEDS ORDERED: METHOCARBAMOL 500 MG TABLET PO PRN (17:00)
[2018-04-22] MEDS ORDERED: DOCUSATE 100 MG CAPSULE PO PRN (17:00)
[2018-04-22] MEDS ORDERED: ONDANSETRON 2MG/ML, 2ML IVPush PRN (17:00)
[2018-04-22] MEDS ORDERED: ENALAPRILAT 1.25 MG/ML, 2ML IVPush PRN (17:00)
[2018-04-22] MEDS ORDERED: TEMAZEPAM 15 MG CAPSULE PO PRN (17:00)
[2018-04-22] MEDS ORDERED: SODIUM CHLORIDE FLUSH 10ML SYR IVF PRN (17:00)
[2018-04-22 18:03] VITALS: BP 137/84
[2018-04-22] MEDS: ALBUTEROL/IPRATROPIUM 2.5MG/0.5MG, 3 ML NPPB SCH ×2 (18:03→23:00)
[2018-04-22 19:07] VITALS: BP 134/71
[2018-04-22] MEDS: AZITHROMYCIN 500 MG in SODIUM CHLORIDE 0.9% 250 ML IV SCH (19:26)
[2018-04-22] MEDS ORDERED: ALBUTEROL/IPRATROPIUM 2.5MG/0.5MG, 3 ML NPPB SCH (20:00)
[2018-04-22] MEDS: OMEPRAZOLE 20 MG CAPSULE.DR PO SCH (21:11)
[2018-04-22] MEDS: FERROUS SULFATE 325 MG TABLET PO SCH (21:11)
[2018-04-22] MEDS: SUCRALFATE 1 GM TABLET PO SCH (21:11)
[2018-04-22] MEDS: FLUTICASONE/VILANTEROL 100-25MCG/INH INH SCH (21:11)
[2018-04-22] MEDS: INSULIN REGULAR 100 UNITS/ML, 3ML VIAL SQ-INSULIN SCH (21:12)
[2018-04-23 02:28] VITALS: BP 110/64
[2018-04-23] MEDS: ALBUTEROL/IPRATROPIUM 2.5MG/0.5MG, 3 ML NPPB SCH ×4 (03:00→14:05)
[2018-04-23 05:46] LABS: ANION GAP 4 mmol/L (5-15); CALCIUM 9.1 mg/dL (8.5-10.1); CHLORIDE 102 mmol/L (98-107); CHOLESTEROL, TOTAL 123 mg/dL (140-239); CREATININE 0.51 mg/dL (0.55-1.02); TRIGLYCERIDES 90 mg/dL (50-200); VLDL CHOLESTEROL 18 mg/dL (0-25)
[2018-04-23 05:47] LABS: BASOPHILS % (AUTO) 0 % (0-1); EOSINOPHILS % (AUTO) 0 % (1-7); LYMPHOCYTES % (AUTO) 6 % (22-44); MD NO; MEAN CORPUSCULAR HEMOGLOBIN 26.7 pg (27.0-34.8); MEAN PLATELET VOLUME 8.3 fL (7.4-10.4); MONOCYTES # (AUTO) 0.24 x10^3/uL (0.2-0.8); MONOCYTES % (AUTO) 3 % (2-9); NEUTROPHILS # (AUTO) 7.18 x10^3/uL (1.8-6.8); NEUTROPHILS % (AUTO) 91 % (42-75); PLATELET COUNT 336 x10^3/uL (130-400); RED BLOOD COUNT 4.77 x10^6/uL (3.82-5.3); RED CELL DISTRIBUTION WIDTH 17.7 % (9.6-15.2)
[2018-04-23 05:56] LABS: CHOL/HDL RATIO 2.6; HDL CHOL % 38 % (28-40); HDL CHOLESTEROL (DIRECT) 47 mg/dL (40-60); LDL CHOLESTEROL,CALCULATED 58 mg/dL (54-169); LDL/HDL RATIO 1.2 (0.5-3.0); THYROID STIMULATING HORMONE 0.319 mIU/L (0.358-3.740)
[2018-04-23] MEDS: SUCRALFATE 1 GM TABLET PO SCH ×3 (07:26→16:26)
[2018-04-23] MEDS: FERROUS SULFATE 325 MG TABLET PO SCH (07:26)
[2018-04-23] MEDS: OMEPRAZOLE 20 MG CAPSULE.DR PO SCH (07:26)
[2018-04-23] MEDS: FLUTICASONE/VILANTEROL 100-25MCG/INH INH SCH (07:27)
[2018-04-23] MEDS: INSULIN REGULAR 100 UNITS/ML, 3ML VIAL SQ-INSULIN SCH ×3 (07:29→16:29)
[2018-04-23 07:37] VITALS: BP 110/65
[2018-04-23] MEDS ORDERED: TEMPLATE NON-FORMULARY MED. (Tiotropium Bromide** (Spiriva**) 18 MCG) INH SCH (09:00)
[2018-04-23] MEDS ORDERED: NICOTINE 21 MG/24 HR PATCH.TD24 TD SCH (09:00)
[2018-04-23] MEDS ORDERED: SENNA/DOCUSATE TABLET PO SCH (09:00)
[2018-04-23 10:25] LABS: AMPHETAMINE SCREEN, URINE Negative (Negative); BARBITURATE SCREEN, URINE Negative (Negative); BENZODIAZEPINE SCREEN, URINE Negative (Negative); CANNABINOID SCREEN, URINE Negative (Negative); COCAINE SCREEN, URINE Negative (Negative); METHADONE SCREEN, URINE Negative (Negative); OPIATE SCREEN, URINE Negative (Negative)
[2018-04-23 12:17] VITALS: BP 117/72
[2018-04-23] MEDS ORDERED: AZIT500T5 PO (13:54)
[2018-04-23] MEDS ORDERED: PRED20TA PO (13:54)
[2018-04-23] MEDS: AZITHROMYCIN 500 MG in SODIUM CHLORIDE 0.9% 250 ML IV SCH (17:00)
== END 2018-04-23 18:02 | disposition home or self-care (01) ==
LOC: ED 14:41 → INTOOBSV 16:47 → EDIP 16:47 → 3NE 17:34
PROVIDERS: ADMIT Hospitalist; ATTEND Hospitalist
DX: J44.1 Chronic obstructive pulmonary disease with (acute) exacerbation (principal); D72.829 Elevated white blood cell count, unspecified; E11.65 Type 2 diabetes mellitus with hyperglycemia; F12.90 Cannabis use, unspecified, uncomplicated; F17.210 Nicotine dependence, cigarettes, uncomplicated; G47.33 Obstructive sleep apnea (adult) (pediatric); J96.11 Chronic respiratory failure with hypoxia; I27.20 Pulmonary hypertension, unspecified; I10 Essential (primary) hypertension; G89.29 Other chronic pain; Z82.49 Family history of ischemic heart disease and other diseases of the circulatory system; Z80.1 Family history of malignant neoplasm of trachea, bronchus and lung
CPT/HCPCS: 36415; 71045; 80048; 80061; 80307; 82040; 82962; 84439; 84443; 85025; 87070; 87205; 93005; 94640; 96361; 96365; 96366; 96367; 96372; 96375; 99285; G0378; J0456; J1650; J1815; J2930; J3475; J7030; J7050; J7512; J7620

== ENCOUNTER 2018-11-29 00:57 | Inpatient (IN) | payer MEDICAID ==
[~2018-11-29] VITALS: Ht 154.9 cm; Wt 86.9 kg
[~2018-11-29 00:57] MED LIST changes: +AZIT500T5 PO; +METF500T17 PO; -METF500T5 PO; -SENN1TAB7 PO; +SENN1TAB8 PO
[2018-11-29] MEDS ORDERED: SODIUM CHLORIDE 0.9% 1,000 ML IV ONE (00:59)
[2018-11-29] MEDS ORDERED: ALBUTEROL/IPRATROPIUM 2.5MG/0.5MG, 3 ML NPPB SCH (01:00)
[2018-11-29] MEDS ORDERED: methylPREDNISolone SOD SUCC 125 MG/2 ML IVP ONE (01:00)
[2018-11-29] MEDS ORDERED: SODIUM CHLORIDE FLUSH 10ML SYR IVF ONE (01:00)
[2018-11-29] MEDS ORDERED: ALBUTEROL/IPRATROPIUM 2.5MG/0.5MG, 3 ML ONE ×3 (01:00→14:08)
[2018-11-29] MEDS ORDERED: methylPREDNISolone SOD SUCC 125 MG/2 ML ONE (01:07)
--- NOTE | 2018-11-29 01:10 | NUR ---
ASHLEIGH BARRAGAN FROM HOME W/ CO SOB. "I'VE BEEN FEELING SICK FOR 5 DAYS". +DRY COUGH/TRIPODDING/ACCESSORY MUSCLE USE UPON ARRIVAL; SPEAKING IN 3-5 WORD SENTENCES. RR 20'S. DUONEB IN PROGRESS UPON ARRIVAL. DENIES CP/N/V HX OF COPD, WEARS 3L BY NC AT BASELINE. PIV PLACED UPON ARRIVAL. PT MEDICATED PER EMAR. FLU SWAB COLLECTED AND SENT TO LAB.
[2018-11-29] MEDS ORDERED: CEFTRIAXONE PMX 1GM/50ML 50 ML ONE (01:15)
[2018-11-29] MEDS ORDERED: ACETAMINOPHEN 325 MG TABLET ONE (01:16)
[2018-11-29] MEDS ORDERED: ACETAMINOPHEN 325 MG TABLET PO ONE (01:30)
[2018-11-29] MEDS ORDERED: AZITHROMYCIN 500 MG in SODIUM CHLORIDE 0.9% 250 ML IVPB ONE (01:30)
[2018-11-29] MEDS ORDERED: CEFTRIAXONE PMX 1GM/50ML 50 ML IV ONE (01:30)
--- NOTE | 2018-11-29 01:54 | NUR ---
ABX INITIATED. BC X2 DRAWN PRIOR TO ADMIN
[2018-11-29 01:57] LABS: BASOPHILS # (AUTO) 0.03 x10^3/uL (0-0.1); BASOPHILS % (AUTO) 0 % (0-1); EOSINOPHILS # (AUTO) 0.01 x10^3/uL (0-0.4); EOSINOPHILS % (AUTO) 0 % (1-7); LYMPHOCYTES # (AUTO) 0.94 x10^3/uL (1-3.4); LYMPHOCYTES % (AUTO) 14 % (22-44); MD NO; MEAN CORPUSCULAR HGB CONC 31.5 g/dL (32.4-35.8); MEAN CORPUSCULAR VOLUME 82.5 fL (80-100); MEAN PLATELET VOLUME 8.9 fL (7.4-10.4); MONOCYTES # (AUTO) 0.46 x10^3/uL (0.2-0.8); MONOCYTES % (AUTO) 7 % (2-9); NEUTROPHILS # (AUTO) 5.32 x10^3/uL (1.8-6.8); NEUTROPHILS % (AUTO) 79 % (42-75); PLATELET COUNT 257 x10^3/uL (130-400); RED BLOOD COUNT 5.54 x10^6/uL (3.82-5.3); RED CELL DISTRIBUTION WIDTH 16.6 % (9.6-15.2)
[2018-11-29 02:08] LABS: ALANINE AMINOTRANSFERASE 17 U/L (12-78); ALBUMIN 3.2 g/dL (3.4-5.0); CALCIUM 8.2 mg/dL (8.5-10.1); CHLORIDE 100 mmol/L (98-107); CREATININE 0.57 mg/dL (0.55-1.02)
--- NOTE | 2018-11-29 02:09 | NUR ---
PT REQUESTING TO LEAVE. DAUGHTER AT BEDSIDE ENCOURAGING PT TO STAY. IMPROVEMENT IN WOB NOTED. SPO2 >90% ON 5L BY NC. RR 15.
[2018-11-29 02:12] LABS: ALKALINE PHOSPHATASE 116 U/L (45-117); BILIRUBIN,TOTAL 0.3 mg/dL (0.2-1.0); TROPONIN I < 0.015 ng/mL (0.000-0.045)
[2018-11-29 02:16] LABS: RAPID INFLUENZA A Negative (Negative); RAPID INFLUENZA B Negative (Negative)
[2018-11-29 02:18] LABS: ANION GAP 4 mmol/L (5-15)
--- NOTE | 2018-11-29 02:42 | NUR ---
NO S/S OF ABX RXN NOTED. SECOND ABX INITIATED.
[2018-11-29] MEDS: ALBUTEROL/IPRATROPIUM 2.5MG/0.5MG, 3 ML NPPB SCH ×6 (03:00→23:00)
[2018-11-29] MEDS ORDERED: LACTATED RINGERS 1,000 ML IV SCH (03:00)
--- NOTE | 2018-11-29 03:05 | NUR ---
PT TO BE A HOLD IN ED. PT TRANSFERED TO ROOM 16 AND PLACED ON HOSPITAL BED. ABX CONTINUE TO INFUSE. NO S/S OF ABX RXN NOTED. DAUGHTER PRESENT. BEDSIDE REPORT TO KULDIP JACOBSON
[2018-11-29] MEDS: methylPREDNISolone SOD SUCC 40 MG/ML IV SCH ×2 (03:06→11:14)
[2018-11-29] MEDS ORDERED: NICOTINE 14MG/24 HR PATCH.TD24 ONE (03:08)
[2018-11-29] MEDS ORDERED: HEPARIN 5,000 UNITS/ML, 1ML ONE ×2 (03:08→11:07)
[2018-11-29] MEDS: MONTELUKAST 10 MG TABLET PO SCH ×2 (03:22→20:05)
[2018-11-29] MEDS: NICOTINE 14MG/24 HR PATCH.TD24 TD SCH ×2 (03:22→23:42)
[2018-11-29] MEDS: HEPARIN 5,000 UNITS/ML, 1ML SQ SCH ×3 (03:22→20:05)
--- NOTE | 2018-11-29 03:23 | NUR ---
PT GIVEN NIGHT TIME MEDICATIONS AND A SANDWICH BY REQUEST. IV FLUIDS INFUSING APPROPRIATELY. NO OTHER NEEDS AT THIS TIME.
--- NOTE | 2018-11-29 04:30 | NUR ---
PT SLEEPING COMFORTABLY ON HOSPITAL BED. RR EVEN AND UNLABORED. DAUGHTER AT BEDSIDE. VSS. CALL LIGHT WITHIN REACH.
[2018-11-29] MEDS: GUAIFENESIN 200 MG TABLET PO SCH ×4 (05:39→20:05)
--- NOTE | 2018-11-29 05:39 | NUR ---
PT OFFERED MUCINEX. PT DECLINED. STATES "I DONT NEED IT AT THIS TIME." NO IMMEDIATE NEEDS FROM PT OR FAMILY. DAUGHTER AT BEDSIDE. CALL LIGHT WITHIN REACH.
--- NOTE | 2018-11-29 06:22 | NUR ---
PT ASSISTED TO RR AT THIS TIME W/ DAUGHTER AND STAFF, VIA WHEELCHAIR. PT AMB W/ STEADY GAIT TO WHEELCHAIR.
--- NOTE | 2018-11-29 06:59 | NUR ---
PT REPORT TO MICHAELLE CHRISTIANSEN.
--- NOTE | 2018-11-29 07:12 | NUR ---
ASSUMED CARE. PT ASLEEP IN BED, BREATHING EVEN AND UNLABORED. EXPIRATORY WHEEZES. DAUGHTER IN ROOM SLEEPING. AWAITING RT TREATMENT.
[2018-11-29] MEDS: BUDESONIDE 0.5 MG/2 ML INHA INH SCH ×2 (09:00→21:00)
[2018-11-29] MEDS ORDERED: BUDESONIDE 0.5 MG/2 ML INHA ONE (09:07)
--- NOTE | 2018-11-29 09:29 | NUR ---
PT RECEIVED BREATHING TX WITH WOB IMPROVED SINCE THEN. UP TO COMMODE WITH ASSISTANCE AND PROVIDED BREAKFAST TRAY
[2018-11-29] MEDS ORDERED: DOXYCYCLINE 100MG TABLET ONE (09:35)
[2018-11-29] MEDS: DOXYCYCLINE 100MG TABLET PO SCH ×2 (09:45→20:05)
--- NOTE | 2018-11-29 11:02 | NUR ---
PT ASSISTED UP TO BSC, STEADY. SR PER MONITOR, PULSE OX MONITOR IN PLACE, CONT OXYGEN AT 4L NC. PT PROVIDED WITH SPRITE PER REQUEST. PT AND PTS FAMILY AWARE OF CONT TO WAIT FOR ROOM ASSIGNMENT.
[2018-11-29] MEDS ORDERED: methylPREDNISolone SOD SUCC 40 MG/ML ONE (11:07)
--- NOTE | 2018-11-29 11:24 | NUR ---
MEDICATED PER ORDERS. CONTINUES TO HAVE LABORED BREATHING BUT SPEAKING IN FULL SENTENCES. LUNG SOUNDS THROUGHOUT WITH WHEEZING IMPROVED SINCE EARLIER
--- NOTE | 2018-11-29 11:52 | NUR ---
HOSPITALIST AT BEDSIDE
--- NOTE | 2018-11-29 13:04 | NUR ---
PT GIVEN INCENTIVE SPIROMETER AND TAUGHT HOW TO USE, ABLE TO DEMONSTRATE. ON EDGE OF BED EATING LUNCH
--- NOTE | 2018-11-29 13:17 | NUR ---
BREAK NOTE: PT. IS RESTING WITH THE CP MONITOR IN PLACE. VSS. PT. FINISHED HER LUNCH AND IS RESTING WITHOUT CONCERNS. HOB IS ELEVATED GREATER THAN 30 DEGREES. SIDERAILS REMAIN UP X 2 WITH THE CALL LIGHT IN PLACE.
--- NOTE | 2018-11-29 14:14 | NUR ---
RT AT BEDSIDE GIVING TX
--- NOTE | 2018-11-29 15:23 | NUR ---
DAUGHTER AT BEDSIDE VISITING
--- NOTE | 2018-11-29 16:33 | NUR ---
PT MEDICATED PER ORDERS. PT HAD BEEN SLEEPING, NO DISTRESS. REPORT TO CLEOPATRA CHRISTIANSEN
[2018-11-29 17:09] VITALS: BP 128/72
[2018-11-29 19:43] VITALS: BP 119/60
[2018-11-30] MEDS: ACETAMINOPHEN 325 MG TABLET PO PRN ×2 (00:03→05:11)
[2018-11-30 01:13] VITALS: BP 130/60
[2018-11-30] MEDS: ALBUTEROL/IPRATROPIUM 2.5MG/0.5MG, 3 ML NPPB SCH ×2 (03:00→07:00)
[2018-11-30] MEDS: HEPARIN 5,000 UNITS/ML, 1ML SQ SCH ×2 (04:00→12:00)
[2018-11-30] MEDS: GUAIFENESIN 200 MG TABLET PO SCH ×2 (05:11→13:23)
[2018-11-30 07:55] VITALS: BP 110/64
[2018-11-30] MEDS: DOXYCYCLINE 100MG TABLET PO SCH (08:27)
[2018-11-30] MEDS: BUDESONIDE 0.5 MG/2 ML INHA INH SCH (09:00)
[2018-11-30 09:11] LABS: ANION GAP 3 mmol/L (5-15); CHLORIDE 102 mmol/L (98-107); CREATININE 0.67 mg/dL (0.55-1.02)
[2018-11-30 09:58] LABS: BASOPHILS # (AUTO) 0.02 x10^3/uL (0-0.1); BASOPHILS % (AUTO) 0 % (0-1); EOSINOPHILS % (AUTO) 0 % (1-7); LYMPHOCYTES # (AUTO) 1.31 x10^3/uL (1-3.4); LYMPHOCYTES % (AUTO) 26 % (22-44); MD NO; MEAN CORPUSCULAR HEMOGLOBIN 26.2 pg (27.0-34.8); MEAN CORPUSCULAR HGB CONC 32.3 g/dL (32.4-35.8); MEAN CORPUSCULAR VOLUME 80.9 fL (80-100); MEAN PLATELET VOLUME 8.6 fL (7.4-10.4); MONOCYTES # (AUTO) 0.41 x10^3/uL (0.2-0.8); MONOCYTES % (AUTO) 8 % (2-9); NEUTROPHILS # (AUTO) 3.34 x10^3/uL (1.8-6.8); NEUTROPHILS % (AUTO) 66 % (42-75); PLATELET COUNT 300 x10^3/uL (130-400); RED BLOOD COUNT 5.28 x10^6/uL (3.82-5.3)
[2018-11-30] MEDS ORDERED: ALBUTEROL/IPRATROPIUM 2.5MG/0.5MG, 3 ML NPPB SCH (10:00)
[2018-11-30] MEDS ORDERED: GUAI200T3 PO (12:22)
[2018-11-30] MEDS ORDERED: DOXY100T PO (12:22)
[2018-11-30] MEDS ORDERED: PRED20TA PO (12:22)
[2018-11-30 13:29] VITALS: BP 111/62
== END 2018-11-30 15:06 | disposition home or self-care (01) | DRG 193 ==
LOC: ED 01:19 → EDIP 02:08 → 4WST 16:59
PROVIDERS: ADMIT Internal Medicine; ATTEND Internal Medicine
DX: J15.9 Unspecified bacterial pneumonia (principal); J96.21 Acute and chronic respiratory failure with hypoxia; J96.22 Acute and chronic respiratory failure with hypercapnia; J44.0 Chronic obstructive pulmonary disease with (acute) lower respiratory infection; J44.1 Chronic obstructive pulmonary disease with (acute) exacerbation; J98.11 Atelectasis; E87.2 Acidosis; I27.20 Pulmonary hypertension, unspecified; Z66 Do not resuscitate; I10 Essential (primary) hypertension; G89.4 Chronic pain syndrome; G47.33 Obstructive sleep apnea (adult) (pediatric); F32.9 Major depressive disorder, single episode, unspecified; F17.200 Nicotine dependence, unspecified, uncomplicated; E11.9 Type 2 diabetes mellitus without complications
CPT/HCPCS: 36415; 36600; 84145; 87400; 99291; J7620; J7626; 71045; 80048; 80053; 82803; 83605; 83880; 84484; 85025; 87040; 93005; 94640; 96361; 96365; 96366; 96367; 96375; G0378; J0456; J0696; J1644; J2920; J2930; J7030; J7050; J7120; J7512

== ENCOUNTER 2020-02-09 21:54 | Inpatient (IN) | payer MEDICAID ==
[~2020-02-09] VITALS: Ht 154.9 cm; Wt 77.7 kg
[~2020-02-09 21:54] MED LIST changes: -ALBU6.7H INH; +ALBU6.7H8 INH; +AMOX1TAB64 PO; +AZIT500T10 PO; -AZIT500T5 PO; +GUAI200T37 PO; -OMEP20CA14 PO; +OMEP20CA20 PO; +SENN-177 PO; -SENN1TAB8 PO
[2020-02-09] MEDS ORDERED: methylPREDNISolone SOD SUCC 125 MG/2 ML ONE (21:56)
[2020-02-09] MEDS ORDERED: methylPREDNISolone SOD SUCC 125 MG/2 ML IV ONE (22:00)
[2020-02-09] MEDS ORDERED: SODIUM CHLORIDE FLUSH 10ML SYR IVF ONE (22:00)
[2020-02-09] MEDS ORDERED: SODIUM CHLORIDE 0.9% 1,000ML IVBOLUS ONE (22:00)
[2020-02-09] MEDS ORDERED: ALBUTEROL/IPRATROPIUM 2.5MG/0.5MG, 3 ML NPPB ONE (22:00)
[2020-02-09] MEDS ORDERED: ALBUTEROL/IPRATROPIUM 2.5MG/0.5MG, 3 ML ONE (22:00)
[2020-02-09] MEDS ORDERED: CEFTRIAXONE PMX 1GM/50ML 50 ML IVPB ONE (22:30)
[2020-02-09] MEDS ORDERED: AZITHROMYCIN 500 MG in SODIUM CHLORIDE 0.9% 250 ML IVPB ONE (22:30)
[2020-02-09] MEDS ORDERED: CEFTRIAXONE PMX 1GM/50ML 50 ML ONE (22:32)
--- NOTE | 2020-02-09 22:36 | NUR ---
PT BIB [facility], PT AT HOME C/O SOB ON 2 L NC, PT RR 28 TO 40 PT MOVES FROM GURNEY TO BED ON HER OWN WITHOUT DIFFICULTY. PT BROUGHT IN ON BIPAP BY MEDICS SATS 100% ON 12 L,PT WITH 20G TO RIGHT FOOT, PLACED ON ALL MONITORS AND MEDICATED PER NOV, PT VOIDED IN BEDPAN, LAB AT BEDSIDE FOR LABS AT THIS TIME
[2020-02-09 23:06] LABS: BASOPHILS # (AUTO) 0.01 x10^3/uL (0-0.1); BASOPHILS % (AUTO) 0 % (0-1); EOSINOPHILS # (AUTO) 0.22 x10^3/uL (0-0.4); EOSINOPHILS % (AUTO) 1 % (1-7); LYMPHOCYTES # (AUTO) 1.24 x10^3/uL (1-3.4); LYMPHOCYTES % (AUTO) 8 % (22-44); MD NO; MEAN CORPUSCULAR HEMOGLOBIN 23.1 pg (27.0-34.8); MEAN CORPUSCULAR HGB CONC 30.8 g/dL (32.4-35.8); MEAN CORPUSCULAR VOLUME 74.9 fL (80-100); MEAN PLATELET VOLUME 7.6 fL (7.4-10.4); MONOCYTES # (AUTO) 0.73 x10^3/uL (0.2-0.8); MONOCYTES % (AUTO) 4 % (2-9); NEUTROPHILS # (AUTO) 14.39 x10^3/uL (1.8-6.8); NEUTROPHILS % (AUTO) 87 % (42-75); PLATELET COUNT 518 x10^3/uL (130-400); RED BLOOD COUNT 4.02 x10^6/uL (3.82-5.3); RED CELL DISTRIBUTION WIDTH 17.2 % (9.6-15.2)
--- NOTE | 2020-02-09 23:10 | NUR ---
LAB CALLED AND ABG CLOTTED AND MUST BE REDRAWN. INFORMED
[2020-02-09 23:18] LABS: ALANINE AMINOTRANSFERASE 15 U/L (12-78); ALBUMIN 2.2 g/dL (3.4-5.0); ANION GAP 3 mmol/L (5-15); CALCIUM 8.8 mg/dL (8.5-10.1); CHLORIDE 89 mmol/L (98-107); CREATININE 0.61 mg/dL (0.55-1.02)
[2020-02-09 23:23] LABS: ALKALINE PHOSPHATASE 227 U/L (45-117); BILIRUBIN,TOTAL 0.2 mg/dL (0.2-1.0); TROPONIN I < 0.015 ng/mL (0.000-0.045)
--- NOTE | 2020-02-09 23:32 | NUR ---
AWAITING ADMIT ORDERS AT THIS TIME
--- NOTE | 2020-02-09 23:37 | NUR ---
DR SHORT AT DISCUSSING POC, PT REFUSED INTUBATION DESPITE SOB AND CHEST PAIN, PT A AND O X 4
[2020-02-09] MEDS ORDERED: NS + 20MEQ KCL 1,000 ML IV SCH (23:45)
[2020-02-10] MEDS ORDERED: ONDANSETRON 2MG/ML, 2ML IVPush PRN
[2020-02-10] MEDS ORDERED: ACETAMINOPHEN 325 MG TABLET PO PRN
[2020-02-10] MEDS ORDERED: SODIUM CHLORIDE 0.9% 1,000ML IVBOLUS ONE
[2020-02-10] MEDS ORDERED: morphine SULFATE 10 MG/ML, 1ML IVPush PRN
--- NOTE | 2020-02-10 00:22 | NUR ---
ADMIT MD IN TO SEE PT AT THIS TIME
--- NOTE | 2020-02-10 00:32 | NUR ---
PT VOID ON BSC DENIES OTHER NEEDS AT THIS TIME, POC DISCUSSED
[2020-02-10] MEDS ORDERED: DEXTROSE 4 GM TAB.CHEW PO PRN (01:00)
[2020-02-10] MEDS ORDERED: GLUCAGON 1 MG IM PRN (01:00)
[2020-02-10] MEDS ORDERED: DEXTROSE 50%, 50ML SYRINGE IVPush PRN (01:00)
--- NOTE | 2020-02-10 02:12 | NUR ---
PT TO ICU 4 WITH THIS RN AND 2 TECHS 2 RT, REPORT TO BILL,
[2020-02-10] MEDS: ENOXAPARIN 40 MG/0.4 ML SQ SCH ×2 (02:44→23:44)
[2020-02-10] MEDS: INSULIN LISPRO 100 UNITS/ML, PEN SQ-INSULIN SCH ×8 (02:51→21:22)
[2020-02-10] MEDS ORDERED: ALBUTEROL/IPRATROPIUM 2.5MG/0.5MG, 3 ML IPPB SCH (03:00)
[2020-02-10] MEDS: ALBUTEROL-IPRATROPIUM MDI INH INH SCH ×4 (03:00→23:37)
[2020-02-10] MEDS: methylPREDNISolone SOD SUCC 40 MG/ML IV SCH ×3 (06:03→23:37)
[2020-02-10 06:43] LABS: MEAN CORPUSCULAR HGB CONC 30.6 g/dL (32.4-35.8); MEAN CORPUSCULAR VOLUME 75.1 fL (80-100); MEAN PLATELET VOLUME 7.6 fL (7.4-10.4); PLATELET COUNT 511 x10^3/uL (130-400); RED BLOOD COUNT 4.15 x10^6/uL (3.82-5.3); RED CELL DISTRIBUTION WIDTH 17.4 % (9.6-15.2)
[2020-02-10 06:56] LABS: ALBUMIN 2.1 g/dL (3.4-5.0); ANION GAP 5 mmol/L (5-15); CALCIUM 8.5 mg/dL (8.5-10.1); CHLORIDE 96 mmol/L (98-107)
[2020-02-10 07:25] LABS: % IRON SATURATION 8 % (20-55); ALANINE AMINOTRANSFERASE 16 U/L (12-78); ALKALINE PHOSPHATASE 211 U/L (45-117); BILIRUBIN,TOTAL 0.2 mg/dL (0.2-1.0); CREATININE 0.54 mg/dL (0.55-1.02); IRON LEVEL 18 mcg/dL (50-170); TOTAL IRON BINDING CAPACITY 222 mcg/dL (250-450)
[2020-02-10 07:32] LABS: BASOPHILS % (AUTO) 0 % (0-1); EOSINOPHILS # (AUTO) 0.02 x10^3/uL (0-0.4); EOSINOPHILS % (AUTO) 0 % (1-7); LYMPHOCYTES # (AUTO) 0.49 x10^3/uL (1-3.4); LYMPHOCYTES % (AUTO) 3 % (22-44); MD SCAN; MONOCYTES # (AUTO) 0.04 x10^3/uL (0.2-0.8); MONOCYTES % (AUTO) 0 % (2-9); NEUTROPHILS # (AUTO) 16.01 x10^3/uL (1.8-6.8); NEUTROPHILS % (AUTO) 97 % (42-75)
[2020-02-10] MEDS: HYDROcodone/APAP 5/325 TABLET PO PRN ×3 (08:56→23:00)
[2020-02-10] MEDS: CEFTRIAXONE PMX 1GM/50ML 50 ML IV SCH ×2 (09:00→21:16)
[2020-02-10] MEDS: SODIUM CHLORIDE FLUSH 10ML SYR IVF SCH ×2 (09:04→21:16)
[2020-02-10 12:53] VITALS: BP 116/73
[2020-02-10] MEDS ORDERED: OMNIPAQUE 350 MG/ML, 75ML BOTTLE ONE (16:11)
[2020-02-10] MEDS ORDERED: INSULIN GLARGINE 100 UNITS/ML, PEN SQ-INSULIN SCH (21:00)
[2020-02-10] MEDS: AZITHROMYCIN 500 MG in SODIUM CHLORIDE 0.9% 250 ML IV SCH (23:39)
[2020-02-11] MEDS: AZITHROMYCIN 500 MG in SODIUM CHLORIDE 0.9% 250 ML IV SCH
[2020-02-11 03:37] VITALS: BP 136/108
[2020-02-11] MEDS: ALBUTEROL-IPRATROPIUM MDI INH INH SCH ×5 (04:35→20:48)
[2020-02-11] MEDS: HYDROcodone/APAP 5/325 TABLET PO PRN ×3 (04:35→21:30)
[2020-02-11] MEDS: methylPREDNISolone SOD SUCC 40 MG/ML IV SCH ×2 (06:42→17:44)
[2020-02-11 07:32] LABS: MEAN CORPUSCULAR HGB CONC 30.6 g/dL (32.4-35.8); MEAN CORPUSCULAR VOLUME 75.3 fL (80-100); MEAN PLATELET VOLUME 7.1 fL (7.4-10.4); PLATELET COUNT 567 x10^3/uL (130-400); RED BLOOD COUNT 4.16 x10^6/uL (3.82-5.3)
[2020-02-11 07:42] LABS: CALCIUM 9.2 mg/dL (8.5-10.1); CHLORIDE 93 mmol/L (98-107); CREATININE 0.55 mg/dL (0.55-1.02)
[2020-02-11 07:49] LABS: INTERNATIONAL NORMALIZED RATIO 1.01 (0.93-1.1); PROTHROMBIN TIME 10.7 Seconds (9.6-11.5)
[2020-02-11 07:50] LABS: ANION GAP 2 mmol/L (5-15)
[2020-02-11 08:00] VITALS: BP 168/94
[2020-02-11 08:14] LABS: BASOPHILS # (AUTO) 0.04 x10^3/uL (0-0.1); BASOPHILS % (AUTO) 0 % (0-1); EOSINOPHILS % (AUTO) 0 % (1-7); LYMPHOCYTES # (AUTO) 0.59 x10^3/uL (1-3.4); LYMPHOCYTES % (AUTO) 4 % (22-44); MD SCAN; MONOCYTES # (AUTO) 0.24 x10^3/uL (0.2-0.8); MONOCYTES % (AUTO) 1 % (2-9); NEUTROPHILS % (AUTO) 95 % (42-75)
[2020-02-11] MEDS ORDERED: INSULIN GLARGINE 100 UNITS/ML, PEN SQ-INSULIN SCH (09:00)
[2020-02-11] MEDS: INSULIN LISPRO 100 UNITS/ML, PEN SQ-INSULIN SCH ×7 (09:04→20:07)
[2020-02-11] MEDS: CEFTRIAXONE PMX 1GM/50ML 50 ML IV SCH ×2 (09:05→20:51)
[2020-02-11] MEDS: SODIUM CHLORIDE FLUSH 10ML SYR IVF SCH ×2 (09:05→20:48)
[2020-02-11] MEDS: TIOTROPIUM BROMIDE 18 MCG/INH INH SCH (10:33)
[2020-02-11 14:20] VITALS: BP 133/78
[2020-02-11 18:56] VITALS: BP 144/76
[2020-02-11] MEDS: INSULIN GLARGINE 100 UNITS/ML, PEN SQ-INSULIN SCH (20:09)
[2020-02-12] MEDS: ENOXAPARIN 40 MG/0.4 ML SQ SCH (00:04)
[2020-02-12] MEDS: AZITHROMYCIN 500 MG in SODIUM CHLORIDE 0.9% 250 ML IV SCH (00:04)
[2020-02-12] MEDS: ALBUTEROL-IPRATROPIUM MDI INH INH SCH ×5 (00:08→16:00)
[2020-02-12 02:13] VITALS: BP 125/74
[2020-02-12] MEDS: methylPREDNISolone SOD SUCC 40 MG/ML IV SCH ×2 (05:53→18:27)
[2020-02-12 06:55] VITALS: BP 117/63
[2020-02-12] MEDS ORDERED: FLUTICASONE/VILANTEROL 200-25MCG/INH INH SCH (09:00)
[2020-02-12] MEDS: SODIUM CHLORIDE FLUSH 10ML SYR IVF SCH ×2 (09:07→20:32)
[2020-02-12] MEDS: CEFTRIAXONE PMX 1GM/50ML 50 ML IV SCH ×2 (09:07→20:32)
[2020-02-12] MEDS: INSULIN GLARGINE 100 UNITS/ML, PEN SQ-INSULIN SCH ×2 (09:25→20:32)
[2020-02-12] MEDS: INSULIN LISPRO 100 UNITS/ML, PEN SQ-INSULIN SCH ×7 (09:26→20:32)
[2020-02-12] MEDS: HYDROcodone/APAP 5/325 TABLET PO PRN ×2 (09:36→22:36)
[2020-02-12 12:49] VITALS: BP 133/60
[2020-02-12] MEDS: TIOTROPIUM BROMIDE 18 MCG/INH INH SCH (13:05)
[2020-02-12 20:12] VITALS: BP 121/74
[2020-02-12] MEDS: ALBUTEROL/IPRATROPIUM 2.5MG/0.5MG, 3 ML HHN SCH (23:01)
[2020-02-13] MEDS: ENOXAPARIN 40 MG/0.4 ML SQ SCH ×2 (00:25→23:04)
[2020-02-13] MEDS: AZITHROMYCIN 500 MG in SODIUM CHLORIDE 0.9% 250 ML IV SCH ×2 (00:25→23:46)
[2020-02-13 00:33] VITALS: BP 128/90
[2020-02-13] MEDS: ALBUTEROL/IPRATROPIUM 2.5MG/0.5MG, 3 ML HHN SCH ×5 (03:04→22:00)
[2020-02-13 05:48] LABS: MEAN CORPUSCULAR HEMOGLOBIN 22.9 pg (27.0-34.8); MEAN CORPUSCULAR HGB CONC 30.9 g/dL (32.4-35.8); MEAN PLATELET VOLUME 7.8 fL (7.4-10.4); PLATELET COUNT 537 x10^3/uL (130-400); RED BLOOD COUNT 4.52 x10^6/uL (3.82-5.3)
[2020-02-13 05:54] LABS: ANION GAP 5 mmol/L (5-15); CALCIUM 9.1 mg/dL (8.5-10.1); CHLORIDE 89 mmol/L (98-107)
[2020-02-13 05:57] LABS: CREATININE 0.73 mg/dL (0.55-1.02)
[2020-02-13] MEDS: methylPREDNISolone SOD SUCC 40 MG/ML IV SCH ×2 (06:07→18:02)
[2020-02-13 06:22] LABS: BASOPHILS # (AUTO) 0.07 x10^3/uL (0-0.1); BASOPHILS % (AUTO) 0 % (0-1); EOSINOPHILS % (AUTO) 0 % (1-7); LYMPHOCYTES # (AUTO) 0.88 x10^3/uL (1-3.4); LYMPHOCYTES % (AUTO) 6 % (22-44); MD SCAN; MONOCYTES # (AUTO) 0.35 x10^3/uL (0.2-0.8); MONOCYTES % (AUTO) 2 % (2-9); NEUTROPHILS # (AUTO) 14.83 x10^3/uL (1.8-6.8); NEUTROPHILS % (AUTO) 92 % (42-75)
[2020-02-13 07:05] VITALS: BP 114/75
[2020-02-13 07:14] VITALS: BP 112/71
[2020-02-13] MEDS: BUDESONIDE 0.5 MG/2 ML INHA INH SCH ×2 (09:00→18:45)
[2020-02-13] MEDS: INSULIN GLARGINE 100 UNITS/ML, PEN SQ-INSULIN SCH ×2 (09:51→20:34)
[2020-02-13] MEDS: INSULIN LISPRO 100 UNITS/ML, PEN SQ-INSULIN SCH ×7 (09:51→20:33)
[2020-02-13] MEDS: SODIUM CHLORIDE FLUSH 10ML SYR IVF SCH ×2 (12:12→20:34)
[2020-02-13] MEDS: CEFTRIAXONE PMX 1GM/50ML 50 ML IV SCH ×2 (12:12→20:33)
[2020-02-13 13:22] VITALS: BP 111/68
[2020-02-13] MEDS: HYDROcodone/APAP 5/325 TABLET PO PRN ×2 (18:13→22:42)
[2020-02-13 19:00] VITALS: BP 104/65
[2020-02-14] VITALS (7 sets, daily range): BP systolic 94–122; BP diastolic 58–74
[2020-02-14] MEDS: methylPREDNISolone SOD SUCC 40 MG/ML IV SCH ×2 (05:47→17:21)
[2020-02-14] MEDS: INSULIN LISPRO 100 UNITS/ML, PEN SQ-INSULIN SCH ×7 (07:00→20:29)
[2020-02-14] MEDS: BUDESONIDE 0.5 MG/2 ML INHA INH SCH ×2 (07:20→20:32)
[2020-02-14] MEDS: ALBUTEROL/IPRATROPIUM 2.5MG/0.5MG, 3 ML HHN SCH ×4 (07:20→20:32)
[2020-02-14] MEDS: SODIUM CHLORIDE FLUSH 10ML SYR IVF SCH ×2 (08:24→20:30)
[2020-02-14] MEDS: CEFTRIAXONE PMX 1GM/50ML 50 ML IV SCH ×2 (08:24→20:29)
[2020-02-14 08:49] LABS: MEAN CORPUSCULAR HGB CONC 30.9 g/dL (32.4-35.8); MEAN CORPUSCULAR VOLUME 74.3 fL (80-100); MEAN PLATELET VOLUME 6.8 fL (7.4-10.4); PLATELET COUNT 558 x10^3/uL (130-400); RED BLOOD COUNT 5.01 x10^6/uL (3.82-5.3); RED CELL DISTRIBUTION WIDTH 18.5 % (9.6-15.2)
[2020-02-14 09:00] LABS: CALCIUM 9.5 mg/dL (8.5-10.1); CHLORIDE 94 mmol/L (98-107)
[2020-02-14] MEDS ORDERED: FENTANYL PF 100 MCG/2ML ONE ×2 (09:06→09:07)
[2020-02-14] MEDS ORDERED: FLUMAZENIL 0.1 MG/1 ML, 5ML ONE (09:07)
[2020-02-14] MEDS ORDERED: NALOXONE 1 MG/ML, 2ML ONE (09:07)
[2020-02-14] MEDS ORDERED: MIDAZOLAM 1 MG/ML, 5ML ONE (09:07)
[2020-02-14 09:14] LABS: ANION GAP 3 mmol/L (5-15)
[2020-02-14 09:20] LABS: BASOPHILS # (AUTO) 0.03 x10^3/uL (0-0.1); BASOPHILS % (AUTO) 0 % (0-1); EOSINOPHILS # (AUTO) 0.01 x10^3/uL (0-0.4); EOSINOPHILS % (AUTO) 0 % (1-7); LYMPHOCYTES # (AUTO) 0.77 x10^3/uL (1-3.4); LYMPHOCYTES % (AUTO) 4 % (22-44); MD SCAN; MONOCYTES # (AUTO) 0.11 x10^3/uL (0.2-0.8); MONOCYTES % (AUTO) 1 % (2-9); NEUTROPHILS # (AUTO) 18.04 x10^3/uL (1.8-6.8); NEUTROPHILS % (AUTO) 95 % (42-75)
[2020-02-14] MEDS ORDERED: LIDOCAINE 1%, 20ML ONE (09:31)
[2020-02-14] MEDS: INSULIN GLARGINE 100 UNITS/ML, PEN SQ-INSULIN SCH ×2 (11:06→20:29)
[2020-02-14] MEDS: HYDROcodone/APAP 5/325 TABLET PO PRN ×3 (14:39→23:50)
[2020-02-14] MEDS ORDERED: DIPHENHYDRAMINE 50 MG CAPSULE PO ONE (21:30)
[2020-02-14] MEDS: AZITHROMYCIN 500 MG in SODIUM CHLORIDE 0.9% 250 ML IV SCH (23:50)
[2020-02-14] MEDS: ENOXAPARIN 40 MG/0.4 ML SQ SCH (23:50)
[2020-02-15 01:32] VITALS: BP 139/82
[2020-02-15] MEDS: methylPREDNISolone SOD SUCC 40 MG/ML IV SCH ×2 (05:26→16:57)
[2020-02-15] MEDS: HYDROcodone/APAP 5/325 TABLET PO PRN ×3 (05:26→20:31)
[2020-02-15 05:34] LABS: ANION GAP 2 mmol/L (5-15); CALCIUM 9.7 mg/dL (8.5-10.1); CHLORIDE 93 mmol/L (98-107); CREATININE 0.74 mg/dL (0.55-1.02)
[2020-02-15 05:38] LABS: MEAN CORPUSCULAR HEMOGLOBIN 22.8 pg (27.0-34.8); MEAN CORPUSCULAR HGB CONC 30.9 g/dL (32.4-35.8); MEAN CORPUSCULAR VOLUME 73.8 fL (80-100); MEAN PLATELET VOLUME 7.5 fL (7.4-10.4); PLATELET COUNT 588 x10^3/uL (130-400); RED BLOOD COUNT 4.92 x10^6/uL (3.82-5.3)
[2020-02-15 06:13] LABS: MD YES
[2020-02-15 06:14] LABS: ANISOCYTOSIS 1+; BAND#(MANUAL) 0.51 x10^3/uL; BANDS%(MANUAL) 2 % (0-7); LYMPH#(MANUAL) 2.03 x10^3/uL (1-3.4); LYMPHS% (MANUAL) 8 % (22-44); MONOS#(MANUAL) 0.51 x10^3/uL (0.3-2.7); MONOS% (MANUAL) 2 % (2-9); SEG#(MANUAL) 22.35 x10^3/uL (1.8-6.8); SEGS% (MANUAL) 88 % (42-75)
[2020-02-15 06:15] LABS: <PLATELET ESTIMATE> INCREASED; <PLT MORPHOLOGY> NORMAL PLT MORPH; HYPOCHROMIA 1+; MICROCYTOSIS 1+; POLYCHROMASIA 1+
[2020-02-15] MEDS: ALBUTEROL/IPRATROPIUM 2.5MG/0.5MG, 3 ML HHN SCH ×4 (07:00→19:11)
[2020-02-15 07:23] VITALS: BP 150/89
[2020-02-15] MEDS: CEFTRIAXONE PMX 1GM/50ML 50 ML IV SCH ×2 (08:45→20:31)
[2020-02-15] MEDS: INSULIN LISPRO 100 UNITS/ML, PEN SQ-INSULIN SCH ×7 (08:46→20:32)
[2020-02-15] MEDS: INSULIN GLARGINE 100 UNITS/ML, PEN SQ-INSULIN SCH ×2 (08:47→20:31)
[2020-02-15] MEDS: SODIUM CHLORIDE FLUSH 10ML SYR IVF SCH ×2 (08:48→20:32)
[2020-02-15] MEDS: BUDESONIDE 0.5 MG/2 ML INHA INH SCH ×2 (09:00→19:11)
[2020-02-15 14:20] VITALS: BP 130/67
[2020-02-15 19:04] VITALS: BP 130/82
[2020-02-15] MEDS: DIPHENHYDRAMINE 50 MG CAPSULE PO PRN (20:31)
[2020-02-15 23:55] LABS: OCCULT BLOOD NEGATIVE (NEGATIVE)
[2020-02-16] MEDS: AZITHROMYCIN 500 MG in SODIUM CHLORIDE 0.9% 250 ML IV SCH ×2 (00:13→23:42)
[2020-02-16] MEDS: ENOXAPARIN 40 MG/0.4 ML SQ SCH ×2 (00:13→23:42)
[2020-02-16] MEDS: HYDROcodone/APAP 5/325 TABLET PO PRN ×4 (00:29→20:47)
[2020-02-16 00:35] VITALS: BP 153/87
[2020-02-16] MEDS: methylPREDNISolone SOD SUCC 40 MG/ML IV SCH ×2 (06:07→20:47)
[2020-02-16 06:43] LABS: MEAN CORPUSCULAR HEMOGLOBIN 22.8 pg (27.0-34.8); MEAN CORPUSCULAR HGB CONC 30.4 g/dL (32.4-35.8); MEAN CORPUSCULAR VOLUME 74.8 fL (80-100); MEAN PLATELET VOLUME 7.1 fL (7.4-10.4); PLATELET COUNT 490 x10^3/uL (130-400); RED BLOOD COUNT 4.69 x10^6/uL (3.82-5.3); RED CELL DISTRIBUTION WIDTH 18.4 % (9.6-15.2)
[2020-02-16 06:46] LABS: ANION GAP 3 mmol/L (5-15); CALCIUM 9.2 mg/dL (8.5-10.1); CHLORIDE 94 mmol/L (98-107); CREATININE 0.67 mg/dL (0.55-1.02)
[2020-02-16] MEDS: BUDESONIDE 0.5 MG/2 ML INHA INH SCH ×2 (06:51→19:17)
[2020-02-16] MEDS: ALBUTEROL/IPRATROPIUM 2.5MG/0.5MG, 3 ML HHN SCH ×4 (06:51→19:17)
[2020-02-16] MEDS: INSULIN LISPRO 100 UNITS/ML, PEN SQ-INSULIN SCH ×7 (07:00→20:41)
[2020-02-16 07:36] LABS: BASOPHILS # (AUTO) 0.05 x10^3/uL (0-0.1); BASOPHILS % (AUTO) 0 % (0-1); EOSINOPHILS # (AUTO) 0.01 x10^3/uL (0-0.4); EOSINOPHILS % (AUTO) 0 % (1-7); LYMPHOCYTES # (AUTO) 1.28 x10^3/uL (1-3.4); LYMPHOCYTES % (AUTO) 6 % (22-44); MD SCAN; MONOCYTES # (AUTO) 0.56 x10^3/uL (0.2-0.8); MONOCYTES % (AUTO) 3 % (2-9); NEUTROPHILS # (AUTO) 17.98 x10^3/uL (1.8-6.8); NEUTROPHILS % (AUTO) 91 % (42-75)
[2020-02-16] MEDS: DIPHENHYDRAMINE 50 MG CAPSULE PO PRN (08:34)
[2020-02-16] MEDS: CEFTRIAXONE PMX 1GM/50ML 50 ML IV SCH ×2 (08:34→20:47)
[2020-02-16] MEDS: INSULIN GLARGINE 100 UNITS/ML, PEN SQ-INSULIN SCH ×2 (08:35→22:31)
[2020-02-16] MEDS: SODIUM CHLORIDE FLUSH 10ML SYR IVF SCH ×2 (08:35→20:47)
[2020-02-16 08:58] VITALS: BP 104/63
[2020-02-16] MEDS: ESCITALOPRAM 10MG TABLET PO SCH (12:56)
[2020-02-16 13:22] VITALS: BP 123/74
[2020-02-16 18:18] VITALS: BP 111/64
[2020-02-17 01:37] VITALS: BP 123/71
[2020-02-17] MEDS: HYDROcodone/APAP 5/325 TABLET PO PRN ×4 (04:10→21:33)
[2020-02-17 06:43] VITALS: BP 108/71
[2020-02-17] MEDS: BUDESONIDE 0.5 MG/2 ML INHA INH SCH ×2 (07:10→18:45)
[2020-02-17] MEDS: ALBUTEROL/IPRATROPIUM 2.5MG/0.5MG, 3 ML HHN SCH ×4 (07:10→18:45)
[2020-02-17 07:23] LABS: ANION GAP 2 mmol/L (5-15); CALCIUM 8.7 mg/dL (8.5-10.1); CHLORIDE 99 mmol/L (98-107); CREATININE 0.48 mg/dL (0.55-1.02)
[2020-02-17] MEDS: INSULIN LISPRO 100 UNITS/ML, PEN SQ-INSULIN SCH ×7 (08:18→21:25)
[2020-02-17] MEDS: ESCITALOPRAM 10MG TABLET PO SCH (09:25)
[2020-02-17] MEDS: CEFTRIAXONE PMX 1GM/50ML 50 ML IV SCH ×2 (09:25→21:19)
[2020-02-17] MEDS: INSULIN GLARGINE 100 UNITS/ML, PEN SQ-INSULIN SCH ×2 (09:25→21:25)
[2020-02-17] MEDS: methylPREDNISolone SOD SUCC 40 MG/ML IV SCH ×2 (09:25→21:19)
[2020-02-17] MEDS: SODIUM CHLORIDE FLUSH 10ML SYR IVF SCH ×2 (09:26→21:20)
[2020-02-17 14:05] VITALS: BP 118/78
[2020-02-17 20:03] VITALS: BP 126/73
[2020-02-18] MEDS: AZITHROMYCIN 500 MG in SODIUM CHLORIDE 0.9% 250 ML IV SCH (00:23)
[2020-02-18] MEDS: ENOXAPARIN 40 MG/0.4 ML SQ SCH (00:23)
[2020-02-18 01:34] VITALS: BP 102/67
[2020-02-18] MEDS: BUDESONIDE 0.5 MG/2 ML INHA INH SCH (06:50)
[2020-02-18] MEDS: ALBUTEROL/IPRATROPIUM 2.5MG/0.5MG, 3 ML HHN SCH (06:50)
[2020-02-18 07:04] VITALS: BP 103/64
[2020-02-18] MEDS: INSULIN LISPRO 100 UNITS/ML, PEN SQ-INSULIN SCH ×4 (07:20→11:42)
[2020-02-18 07:47] LABS: ANION GAP 3 mmol/L (5-15); CALCIUM 8.9 mg/dL (8.5-10.1); CHLORIDE 96 mmol/L (98-107)
[2020-02-18 07:48] LABS: CREATININE 0.66 mg/dL (0.55-1.02)
[2020-02-18] MEDS: SODIUM CHLORIDE FLUSH 10ML SYR IVF SCH (08:59)
[2020-02-18] MEDS: methylPREDNISolone SOD SUCC 40 MG/ML IV SCH (08:59)
[2020-02-18] MEDS: INSULIN GLARGINE 100 UNITS/ML, PEN SQ-INSULIN SCH (08:59)
[2020-02-18] MEDS: HYDROcodone/APAP 5/325 TABLET PO PRN (08:59)
[2020-02-18] MEDS: ESCITALOPRAM 10MG TABLET PO SCH (09:00)
[2020-02-18] MEDS: CEFTRIAXONE PMX 1GM/50ML 50 ML IV SCH (09:00)
[2020-02-18] MEDS ORDERED: METH4TAB2 PO (12:23)
[2020-02-18] MEDS ORDERED: ESCI10TA PO (12:23)
[2020-02-18] MEDS ORDERED: FAMO-79 PO (12:23)
[2020-02-18] MEDS ORDERED: INSU100I13 SQ-INSULIN ×2 (12:23)
[2020-02-18] MEDS ORDERED: INSU100I11 SQ-INSULIN ×2 (12:23)
[2020-02-18 13:25] VITALS: BP 142/71
[2020-02-18] MEDS ORDERED: ALBUTEROL/IPRATROPIUM 2.5MG/0.5MG, 3 ML HHN SCH (15:00)
[2020-02-18] MEDS ORDERED: GLYB2.5T2 PO (15:28)
[2020-02-18] MEDS ORDERED: METF500T PO (15:28)
== END 2020-02-18 17:03 | disposition home or self-care (01) | DRG 136 ==
LOC: ED 23:31 → EDIP 23:45 → ICU 02-10 01:05 → 4NW 02-11 18:27 → 3N 02-12 17:36
PROVIDERS: ADMIT Hospitalist; ATTEND Hospitalist
PROC: 5A09357 Assistance with Respiratory Ventilation, Less than 24 Consecutive Hours, Continuous Positive Airway Pressure (ICD-10-PCS; 2020-02-09)
PROC: 5A09357 Assistance with Respiratory Ventilation, Less than 24 Consecutive Hours, Continuous Positive Airway Pressure (ICD-10-PCS; 2020-02-10)
PROC: 0BBL3ZX Excision of Left Lung, Percutaneous Approach, Diagnostic (ICD-10-PCS; principal; 2020-02-14)
DX: C34.92 Malignant neoplasm of unspecified part of left bronchus or lung (principal); J96.21 Acute and chronic respiratory failure with hypoxia; E87.4 Mixed disorder of acid-base balance; J15.9 Unspecified bacterial pneumonia; I11.0 Hypertensive heart disease with heart failure; I27.20 Pulmonary hypertension, unspecified; I50.30 Unspecified diastolic (congestive) heart failure; E11.65 Type 2 diabetes mellitus with hyperglycemia; D64.9 Anemia, unspecified; F17.200 Nicotine dependence, unspecified, uncomplicated; F41.9 Anxiety disorder, unspecified; G89.4 Chronic pain syndrome; J44.0 Chronic obstructive pulmonary disease with (acute) lower respiratory infection; J44.1 Chronic obstructive pulmonary disease with (acute) exacerbation; Z80.1 Family history of malignant neoplasm of trachea, bronchus and lung; Z82.49 Family history of ischemic heart disease and other diseases of the circulatory system; Z83.3 Family history of diabetes mellitus; Z99.81 Dependence on supplemental oxygen; Z20.828 Contact with and (suspected) exposure to other viral communicable diseases
CPT/HCPCS: 10160; 32405; 36415; 36600; 71045; 71260; 77002; 80048; 80053; 82272; 82607; 82728; 82803; 82947; 82962; 83036; 83540; 83550; 83615; 83880; 84145; 84443; 84484; 85025; 85379; 85610; 86140; 87040; 87070; 87075; 87081; 87102; 87176; 87205; 88305; 88333; 93005; 94640; 94660; 96361; 96365; 96367; 99156; 99157; G0378; J0456; J0696; J1650; J2250; J3010; J7626; Q9967; J1815; J2310; J2920; J2930; J7030; J7050; U0001

== ENCOUNTER → 2020-03-05 | Outpatient (CLI) | payer MEDICAID ==
[~2020-03-05] MED LIST changes: +ESCI10TA PO; +FAMO-79 PO; +GADOTERATE 7.5 MMOL/15 ML SYR ONE; +GLYB2.5T2 PO; +INSU100I11 SQ-INSULIN; +INSU100I13 SQ-INSULIN; +METF500T PO; +METH4TAB2 PO
== END | disposition home or self-care (01) ==
LOC: RAD 06:56
PROVIDERS: ATTEND Internal Medicine Hematology & Oncology
DX: C34.90 Malignant neoplasm of unspecified part of unspecified bronchus or lung (principal); G31.89 Other specified degenerative diseases of nervous system
CPT/HCPCS: 70553; A9575

== ENCOUNTER 2020-03-09 19:40 | Inpatient (IN) | payer MEDICAID ==
[~2020-03-09] VITALS: Ht 154.9 cm; Wt 69.1 kg
[~2020-03-09 19:40] MED LIST changes: -GADOTERATE 7.5 MMOL/15 ML SYR ONE
--- NOTE | 2020-03-09 19:54 | NUR ---
DR LANZA BS FOR EXAM. PT C/O BACK PAIN "WHERE THEY DID THE BIOPSY". STATES PAIN IS AFFECTING HER ABILITY TO BREATH. RECENTLY DX'D W/ LUNG CA. PT USES HOME O2 AT 3-1/2 LN.
[2020-03-09] MEDS ORDERED: methylPREDNISolone SOD SUCC 125 MG/2 ML IV ONE (20:00)
[2020-03-09] MEDS ORDERED: SODIUM CHLORIDE FLUSH 10ML SYR IVF ONE (20:00)
[2020-03-09] MEDS ORDERED: ONDANSETRON 2MG/ML, 2ML IVPush ONE (20:00)
[2020-03-09] MEDS ORDERED: ALBUTEROL/IPRATROPIUM 2.5MG/0.5MG, 3 ML ONE (20:25)
[2020-03-09] MEDS ORDERED: methylPREDNISolone SOD SUCC 125 MG/2 ML ONE (20:37)
[2020-03-09] MEDS ORDERED: ONDANSETRON 2MG/ML, 2ML ONE (20:37)
[2020-03-09] MEDS ORDERED: MORPHINE SULFATE 4 MG/ML, 1ML ONE (20:38)
[2020-03-09] MEDS: ALBUTEROL/IPRATROPIUM 2.5MG/0.5MG, 3 ML NPPB SCH ×2 (20:50→22:07)
[2020-03-09 21:01] LABS: MEAN CORPUSCULAR HEMOGLOBIN 23.1 pg (27.0-34.8); MEAN CORPUSCULAR HGB CONC 30.4 g/dL (32.4-35.8); MEAN CORPUSCULAR VOLUME 75.8 fL (80-100); MEAN PLATELET VOLUME 7.1 fL (7.4-10.4); PLATELET COUNT 505 x10^3/uL (130-400); RED BLOOD COUNT 4.55 x10^6/uL (3.82-5.3); RED CELL DISTRIBUTION WIDTH 19.9 % (9.6-15.2)
--- NOTE | 2020-03-09 21:05 | NUR ---
IV ATTEMPTED X1: UNSUCCESSFUL. PT ADMITS TO HX IV DRUG USE. U/S IV ASSIST REQUESTED.
[2020-03-09 21:06] LABS: ALBUMIN 2.2 g/dL (3.4-5.0); ANION GAP 4 mmol/L (5-15); CALCIUM 9.7 mg/dL (8.5-10.1); CHLORIDE 89 mmol/L (98-107)
[2020-03-09 21:10] LABS: ALANINE AMINOTRANSFERASE 16 U/L (12-78); ALKALINE PHOSPHATASE 188 U/L (45-117); BILIRUBIN,TOTAL 0.4 mg/dL (0.2-1.0); CREATININE 0.49 mg/dL (0.55-1.02); TROPONIN I < 0.015 ng/mL (0.000-0.045)
--- NOTE | 2020-03-09 21:15 | NUR ---
JESSIKA RN TO PT ROOM FOR U/S IV ATTEMPT
[2020-03-09] MEDS ORDERED: CEFTRIAXONE PMX 1GM/50ML 50 ML IVPB ONE (21:30)
[2020-03-09] MEDS ORDERED: CEFTRIAXONE PMX 1GM/50ML 50 ML ONE (21:34)
--- NOTE | 2020-03-09 21:39 | NUR ---
KULDIP ROSEN BS FOR U/S ATTEMPT; UNSUCCESSFUL, SO FAR.
[2020-03-09 21:50] LABS: BASOPHILS # (AUTO) 0.05 x10^3/uL (0-0.1); BASOPHILS % (AUTO) 0 % (0-1); EOSINOPHILS # (AUTO) 0.02 x10^3/uL (0-0.4); EOSINOPHILS % (AUTO) 0 % (1-7); LYMPHOCYTES # (AUTO) 1.08 x10^3/uL (1-3.4); LYMPHOCYTES % (AUTO) 8 % (22-44); MD SCAN; MONOCYTES # (AUTO) 0.58 x10^3/uL (0.2-0.8); MONOCYTES % (AUTO) 5 % (2-9); NEUTROPHILS # (AUTO) 11.13 x10^3/uL (1.8-6.8); NEUTROPHILS % (AUTO) 87 % (42-75)
[2020-03-09] MEDS: MORPHINE SULFATE 4 MG/ML, 1ML IVPush PRN (21:54)
--- NOTE | 2020-03-09 22:10 | NUR ---
PT MEDICATED W/ SOLU-MEDROL, ZOFRAN AND MORPHINE PER EMAR. ROCEPHIN SAM, INFUSING AT 100ML/HR VIA PUMP. IV SITE PATENT.
--- NOTE | 2020-03-09 22:12 | NUR ---
REPORT RECEIVED FROM SANJU CHRISTIANSEN. PT IS RESTING ON [employer] W/ CALL LIGHT IN REACH, SIDE RAILS UPX2. ABX RUNNING. VSS, NADN. CONVERSING W/ REGISTRATION W/O DIFFICULTY. AWAITING CTA.
--- NOTE | 2020-03-09 22:12 | NUR ---
PT REPORT TO KULDIP HEREDIA. PT CARE TRANSFERRED.
--- NOTE | 2020-03-09 22:17 | NUR ---
SPOKE W/ ASKING IF PT NEEDS LACTIC LAB. TO ORDER TEST.
--- NOTE | 2020-03-09 23:11 | NUR ---
CT BROUGHT PT BACK TO ROOM W/O TEST DONE. REPORTS THEY CANT USE HER PATENT PIV. DATA VISUALIZATION DEVELOPER SPEAKING W/ CT.
[2020-03-09] MEDS ORDERED: ALPR0.5T6 PO (23:19)
[2020-03-09] MEDS: AZITHROMYCIN 500 MG in SODIUM CHLORIDE 0.9% 250 ML IVPB ONE (23:23)
[2020-03-09] MEDS ORDERED: BISACODYL 10 MG SUPP PR PRN (23:30)
[2020-03-09] MEDS ORDERED: ONDANSETRON ODT 4 MG PO PRN (23:30)
[2020-03-09] MEDS ORDERED: TEMPLATE NON-FORMULARY MED. (Fluticasone/Salmeterol** (Advair 250-50 Diskus**) 1 PUFF) INH SCH (23:30)
--- NOTE | 2020-03-09 23:35 | NUR ---
PT TO CT.
[2020-03-09] MEDS ORDERED: OMNIPAQUE 350 MG/ML, 75ML BOTTLE ONE (23:41)
--- NOTE | 2020-03-09 23:41 | NUR ---
HOSPITAL BED ORDERED.
[2020-03-09] MEDS ORDERED: LEVOFLOXACIN/PMX 750MG/150ML 150 ML ONE (23:48)
[2020-03-09] MEDS ORDERED: HEPARIN 5,000 UNITS/ML, 1ML ONE (23:48)
[2020-03-09] MEDS ORDERED: NS + 20MEQ KCL 1,000 ML IV ONE (23:48)
[2020-03-09] MEDS ORDERED: metFORMIN 500 MG TABLET ONE (23:48)
[2020-03-10] MEDS: AZITHROMYCIN 500 MG in SODIUM CHLORIDE 0.9% 250 ML IVPB ONE (00:03)
[2020-03-10] MEDS: metFORMIN 500 MG TABLET PO SCH ×3 (00:05→20:34)
[2020-03-10] MEDS: HEPARIN 5,000 UNITS/ML, 1ML SQ SCH ×4 (00:05→23:43)
--- NOTE | 2020-03-10 00:09 | NUR ---
PT AMBULATED TO THE W/ A STAND BY ASSIST, CONNECTED TO O2. URINE COLLECTED. PT AMBULATED BACK TO ROOM AND TRANSPORTED ONTO HOSPITAL BED, DEBBIE BATISTA.
--- NOTE | 2020-03-10 00:21 | NUR ---
MED ADWOA FROM PHARMACY.
--- NOTE | 2020-03-10 01:30 | NUR ---
PT AMBULATED TO THE BR W/ A STEADY GAIT. RETURNED TO HOSPITAL BED.
[2020-03-10] MEDS: NS + 20MEQ KCL 1,000 ML IV SCH ×2 (01:35→14:27)
[2020-03-10] MEDS: LEVOFLOXACIN/PMX 750MG/150ML 150 ML IV SCH ×2 (01:37→23:42)
--- NOTE | 2020-03-10 02:16 | NUR ---
PT PROVIDED W/ SANDWICH AND CRACKERS.
[2020-03-10] MEDS ORDERED: MORPHINE SULFATE 4 MG/ML, 1ML ONE (02:43)
[2020-03-10] MEDS: MORPHINE SULFATE 4 MG/ML, 1ML IVPush PRN (02:46)
--- NOTE | 2020-03-10 02:51 | NUR ---
PT C/O BACK PAIN. MEDICATED W/ PRN PAIN MEDS. RESP EVEN AND UNLABORED, NADN.
--- NOTE | 2020-03-10 04:09 | NUR ---
PT SLEEPING ON HOSPITAL BED. RESP EVEN AND UNLABORED, CHEST RISE AND FALL OBSERVED, NADN.
--- NOTE | 2020-03-10 04:15 | NUR ---
PT AMBULATED TO THE BR W/ A STEADY GAIT AND 1 PERSON ASSIST. CONTINUES TO ASK FOR SODE. PT EDUCATED ON NO CONCENTRATED SWEETS DIET. PROVIDED BOTTLE OF WATER.
--- NOTE | 2020-03-10 04:30 | NUR ---
PT NOW REQUIRING 4.5L TO MAINTAIN O2 SAT >90%
[2020-03-10 04:34] LABS: MEAN CORPUSCULAR HGB CONC 30.3 g/dL (32.4-35.8); MEAN PLATELET VOLUME 7.2 fL (7.4-10.4); PLATELET COUNT 506 x10^3/uL (130-400); RED BLOOD COUNT 4.23 x10^6/uL (3.82-5.3)
[2020-03-10 04:44] LABS: ANION GAP 1 mmol/L (5-15); CALCIUM 9.5 mg/dL (8.5-10.1); CHLORIDE 90 mmol/L (98-107); CREATININE 0.51 mg/dL (0.55-1.02)
--- NOTE | 2020-03-10 05:09 | NUR ---
CRITICAL CO2 AND O2 REQUIREMENTS REPORTED TO . REPORTS SHE WILL ORDER ABG.
[2020-03-10 05:55] LABS: BASOPHILS # (AUTO) 0.06 x10^3/uL (0-0.1); BASOPHILS % (AUTO) 1 % (0-1); EOSINOPHILS % (AUTO) 0 % (1-7); LYMPHOCYTES # (AUTO) 0.24 x10^3/uL (1-3.4); LYMPHOCYTES % (AUTO) 2 % (22-44); MD SCAN; MONOCYTES # (AUTO) 0.05 x10^3/uL (0.2-0.8); MONOCYTES % (AUTO) 0 % (2-9); NEUTROPHILS # (AUTO) 12.74 x10^3/uL (1.8-6.8); NEUTROPHILS % (AUTO) 97 % (42-75)
--- NOTE | 2020-03-10 06:14 | NUR ---
PT SLEEPING ON HOSPITAL BED, CONNECTED TO MONITORING. CHEST RISE AND FALL OBSERVED, VSS, NADN.
--- NOTE | 2020-03-10 07:00 | NUR ---
REPORT GIVEN TO JEOVANY CHRISTIANSNE. PT SLEEPING ON HOSPITAL BED W/ CALL LIGHT IN REACH. RESP EVEN AND UNLABORED, DEBBIE.
--- NOTE | 2020-03-10 07:02 | NUR ---
REPORT RECEIVED FROM YAN CHRISTIANSEN.
--- NOTE | 2020-03-10 07:15 | NUR ---
PT SLEEPING IN HOSPITAL BED, ON MONITORS, VSS. PHARMACY CALLED, DAILY MEDICATION REQUESTED. MEAL TRAY ORDERED. PT WITH NO DISTRESS, CONT TO MONITOR.
[2020-03-10] MEDS ORDERED: ALBUTEROL HFA 90 MCG/SPRAY INH PRN (08:00)
--- NOTE | 2020-03-10 08:10 | NUR ---
PT AWAKE AND ALERT, GIVEN MEAL TRAY. PT'S RT EJ IV REMOVED ACCIDENTALY BY PT. NO BLEEDING NOTED, DRSG PLACED OVER SITE, NO REDNESS OR SWELLING NOTED. PT DENIES NEEDS. AWAITING ADMIT BED. CONT TO MONITOR.
[2020-03-10] MEDS ORDERED: metFORMIN 500 MG TABLET ONE (08:44)
[2020-03-10] MEDS ORDERED: FAMOTIDINE 20 MG TABLET ONE (08:44)
[2020-03-10] MEDS ORDERED: SENNA/DOCUSATE TABLET ONE (08:44)
[2020-03-10] MEDS ORDERED: HEPARIN 5,000 UNITS/ML, 1ML ONE (08:44)
[2020-03-10] MEDS: TIOTROPIUM BROMIDE 18 MCG/INH INH SCH (09:00)
[2020-03-10] MEDS: FAMOTIDINE 20 MG TABLET PO SCH (09:10)
[2020-03-10] MEDS: SENNA/DOCUSATE TABLET PO SCH (09:11)
[2020-03-10] MEDS: ESCITALOPRAM 10MG TABLET PO SCH (09:11)
--- NOTE | 2020-03-10 09:20 | NUR ---
PT MEDICATED PER ADMIT ORDERS. PT SLEEPING IN BED, NO DISTRESS, REMAINS ON MONITORS. AWAITING ADMIT BED. CONT TO MONITOR.
[2020-03-10] MEDS: FLUTICASONE/VILANTEROL 200-25MCG/INH INH SCH (09:32)
--- NOTE | 2020-03-10 09:49 | NUR ---
REPORT GIVEN TO TOMASZ CHRISTIANSEN.
--- NOTE | 2020-03-10 10:04 | NUR ---
REPORT RECEIVED FROM KULDIP THAYER. [facility]
--- NOTE | 2020-03-10 12:26 | NUR ---
PT PROVIDED WITH LUNCH
[2020-03-10 13:48] VITALS: BP 121/76
[2020-03-10] MEDS: morphine SULFATE 10 MG/ML, 1ML IVPush PRN (14:28)
[2020-03-10] MEDS ORDERED: OXYcodone IR 5MG TABLET PO PRN (15:00)
[2020-03-10] MEDS ORDERED: INSULIN LISPRO 100 UNITS/ML, PEN SQ-INSULIN SCH (18:00)
[2020-03-10 19:30] VITALS: BP 103/53
[2020-03-10] MEDS: INSULIN LISPRO 100 UNITS/ML, PEN SQ-INSULIN SCH (20:58)
[2020-03-11 01:44] VITALS: BP 99/62
[2020-03-11 04:59] VITALS: BP 101/64
[2020-03-11] MEDS: morphine SULFATE 10 MG/ML, 1ML IVPush PRN (05:50)
[2020-03-11 06:28] LABS: ANION GAP 5 mmol/L (5-15); CALCIUM 9.7 mg/dL (8.5-10.1); CHLORIDE 92 mmol/L (98-107); CREATININE 0.36 mg/dL (0.55-1.02)
[2020-03-11 06:43] VITALS: BP 93/57
[2020-03-11] MEDS: INSULIN LISPRO 100 UNITS/ML, PEN SQ-INSULIN SCH ×4 (07:00→20:44)
[2020-03-11 08:12] VITALS: BP 97/60
[2020-03-11] MEDS: SENNA/DOCUSATE TABLET PO SCH (08:23)
[2020-03-11] MEDS: ESCITALOPRAM 10MG TABLET PO SCH (08:24)
[2020-03-11] MEDS: HEPARIN 5,000 UNITS/ML, 1ML SQ SCH ×2 (08:24→16:28)
[2020-03-11] MEDS: metFORMIN 500 MG TABLET PO SCH (08:24)
[2020-03-11] MEDS: FAMOTIDINE 20 MG TABLET PO SCH (08:24)
[2020-03-11] MEDS: FLUTICASONE/VILANTEROL 200-25MCG/INH INH SCH (09:00)
[2020-03-11] MEDS: TIOTROPIUM BROMIDE 18 MCG/INH INH SCH (09:00)
[2020-03-11] MEDS ORDERED: OXYcodone IR 5MG TABLET PO PRN ×2 (10:00→11:00)
[2020-03-11] MEDS: NS + 20MEQ KCL 1,000 ML IV SCH (11:18)
[2020-03-11 12:29] VITALS: BP 110/68
[2020-03-11] MEDS: methylPREDNISolone SOD SUCC 125 MG/2 ML IV SCH (16:28)
[2020-03-11] MEDS ORDERED: NALOXONE 0.4 MG/ML, 1ML IVPush ONE (17:30)
[2020-03-11 19:43] VITALS: BP 126/73
[2020-03-11] MEDS: LEVOFLOXACIN/PMX 750MG/150ML 150 ML IV SCH (23:30)
[2020-03-12] MEDS: HEPARIN 5,000 UNITS/ML, 1ML SQ SCH ×4 (00:38→23:37)
[2020-03-12] MEDS: methylPREDNISolone SOD SUCC 125 MG/2 ML IV SCH ×4 (00:38→23:37)
[2020-03-12 00:59] VITALS: BP 108/69
[2020-03-12 05:48] LABS: MEAN CORPUSCULAR HEMOGLOBIN 22.8 pg (27.0-34.8); MEAN CORPUSCULAR HGB CONC 30.3 g/dL (32.4-35.8); MEAN CORPUSCULAR VOLUME 75.5 fL (80-100); MEAN PLATELET VOLUME 7.3 fL (7.4-10.4); PLATELET COUNT 511 x10^3/uL (130-400); RED BLOOD COUNT 4.14 x10^6/uL (3.82-5.3); RED CELL DISTRIBUTION WIDTH 20.1 % (9.6-15.2)
[2020-03-12 05:55] LABS: ANION GAP 2 mmol/L (5-15); CHLORIDE 92 mmol/L (98-107); CREATININE 0.43 mg/dL (0.55-1.02)
[2020-03-12 06:43] VITALS: BP 109/69
[2020-03-12 06:45] LABS: BASOPHILS # (AUTO) 0.06 x10^3/uL (0-0.1); BASOPHILS % (AUTO) 0 % (0-1); EOSINOPHILS # (AUTO) 0.01 x10^3/uL (0-0.4); EOSINOPHILS % (AUTO) 0 % (1-7); LYMPHOCYTES % (AUTO) 4 % (22-44); MD SCAN; MONOCYTES # (AUTO) 0.04 x10^3/uL (0.2-0.8); MONOCYTES % (AUTO) 0 % (2-9); NEUTROPHILS # (AUTO) 12.15 x10^3/uL (1.8-6.8); NEUTROPHILS % (AUTO) 95 % (42-75)
[2020-03-12 07:56] VITALS: BP 123/77
[2020-03-12] MEDS: NS + 20MEQ KCL 1,000 ML IV SCH ×2 (08:29→20:13)
[2020-03-12] MEDS: ESCITALOPRAM 10MG TABLET PO SCH (08:30)
[2020-03-12] MEDS: FAMOTIDINE 20 MG TABLET PO SCH (08:30)
[2020-03-12] MEDS: SENNA/DOCUSATE TABLET PO SCH (08:30)
[2020-03-12] MEDS: FLUTICASONE/VILANTEROL 200-25MCG/INH INH SCH (08:31)
[2020-03-12] MEDS: INSULIN LISPRO 100 UNITS/ML, PEN SQ-INSULIN SCH ×4 (08:31→20:14)
[2020-03-12] MEDS: TIOTROPIUM BROMIDE 18 MCG/INH INH SCH (08:36)
[2020-03-12 13:41] VITALS: BP 131/77
[2020-03-12] MEDS: ACETAMINOPHEN 325 MG TABLET PO PRN (17:33)
[2020-03-12 20:22] VITALS: BP 145/85
[2020-03-12] MEDS: LEVOFLOXACIN/PMX 750MG/150ML 150 ML IV SCH (23:22)
[2020-03-13 01:20] VITALS: BP 138/81
[2020-03-13] MEDS: ACETAMINOPHEN 325 MG TABLET PO PRN (03:30)
[2020-03-13] MEDS: OXYcodone IR 5MG TABLET PO PRN ×3 (04:23→20:03)
[2020-03-13 07:31] VITALS: BP 125/72
[2020-03-13] MEDS: INSULIN LISPRO 100 UNITS/ML, PEN SQ-INSULIN SCH ×4 (08:11→20:10)
[2020-03-13] MEDS: FAMOTIDINE 20 MG TABLET PO SCH (08:12)
[2020-03-13] MEDS: NS + 20MEQ KCL 1,000 ML IV SCH ×2 (08:12→23:06)
[2020-03-13] MEDS: methylPREDNISolone SOD SUCC 125 MG/2 ML IV SCH ×2 (08:12→16:51)
[2020-03-13] MEDS: HEPARIN 5,000 UNITS/ML, 1ML SQ SCH ×2 (08:12→16:51)
[2020-03-13] MEDS: FLUTICASONE/VILANTEROL 200-25MCG/INH INH SCH ×2 (08:13→09:00)
[2020-03-13] MEDS: ESCITALOPRAM 10MG TABLET PO SCH (08:13)
[2020-03-13] MEDS: SENNA/DOCUSATE TABLET PO SCH (08:14)
[2020-03-13] MEDS: TIOTROPIUM BROMIDE 18 MCG/INH INH SCH (08:14)
[2020-03-13] MEDS ORDERED: morphine SULFATE 10 MG/ML, 1ML IVPush PRN ×2 (11:00)
[2020-03-13] MEDS ORDERED: HYDROmorphone 2 MG/ML, 1ML IVPush PRN (11:00)
[2020-03-13 11:05] LABS: HCT (SEDRATE) 30.6 % (34.6-47.8)
[2020-03-13] MEDS ORDERED: OMNIPAQUE 350 MG/ML, 100ML BOTTLE ONE (11:43)
[2020-03-13] MEDS ORDERED: FENTANYL 25 MCG PATCH TD SCH (13:00)
[2020-03-13 14:00] VITALS: BP 142/78
[2020-03-13 19:34] VITALS: BP 134/72
[2020-03-14] MEDS: OXYcodone IR 5MG TABLET PO PRN ×6 (00:03→22:55)
[2020-03-14 00:09] VITALS: BP 113/66
[2020-03-14] MEDS: methylPREDNISolone SOD SUCC 125 MG/2 ML IV SCH (01:16)
[2020-03-14] MEDS: HEPARIN 5,000 UNITS/ML, 1ML SQ SCH ×3 (01:16→16:22)
[2020-03-14 05:50] LABS: CALCIUM 9.2 mg/dL (8.5-10.1); CHLORIDE 92 mmol/L (98-107); CREATININE 0.48 mg/dL (0.55-1.02)
[2020-03-14 05:59] LABS: MEAN CORPUSCULAR HEMOGLOBIN 23.1 pg (27.0-34.8); MEAN CORPUSCULAR VOLUME 74.7 fL (80-100); MEAN PLATELET VOLUME 7.6 fL (7.4-10.4); PLATELET COUNT 556 x10^3/uL (130-400); RED BLOOD COUNT 4.06 x10^6/uL (3.82-5.3); RED CELL DISTRIBUTION WIDTH 20.4 % (9.6-15.2)
[2020-03-14 06:08] LABS: ANION GAP 10 mmol/L (5-15)
[2020-03-14 06:41] LABS: MD YES
[2020-03-14 06:43] LABS: <PLATELET ESTIMATE> INCREASED; <PLT MORPHOLOGY> NORMAL PLT MORPH; ANISOCYTOSIS 1+; HYPOCHROMIA 1+; LYMPH#(MANUAL) 0.53 x10^3/uL (1-3.4); LYMPHS% (MANUAL) 3 % (22-44); MICROCYTOSIS 1+; MONOS#(MANUAL) 0.35 x10^3/uL (0.3-2.7); MONOS% (MANUAL) 2 % (2-9); SEG#(MANUAL) 16.63 x10^3/uL (1.8-6.8); SEGS% (MANUAL) 95 % (42-75)
[2020-03-14] MEDS: INSULIN LISPRO 100 UNITS/ML, PEN SQ-INSULIN SCH ×4 (07:19→20:40)
[2020-03-14 08:38] VITALS: BP 114/67
[2020-03-14] MEDS: TIOTROPIUM BROMIDE 18 MCG/INH INH SCH (10:21)
[2020-03-14] MEDS: ESCITALOPRAM 10MG TABLET PO SCH (10:22)
[2020-03-14] MEDS: FAMOTIDINE 20 MG TABLET PO SCH (10:22)
[2020-03-14] MEDS: SENNA/DOCUSATE TABLET PO SCH (10:22)
[2020-03-14] MEDS ORDERED: ALBUTEROL SULFATE 2.5 MG/3 ML NPPB SCH (11:00)
[2020-03-14 12:24] VITALS: BP 112/65
[2020-03-14] MEDS: NS + 20MEQ KCL 1,000 ML IV SCH (13:45)
[2020-03-14] MEDS: ACETAMINOPHEN 325 MG TABLET PO PRN (14:27)
[2020-03-14] MEDS: ALBUTEROL SULFATE 2.5 MG/3 ML NPPB SCH ×2 (14:28→20:45)
[2020-03-14] MEDS: POLYETHYLENE GLYCOL 17 GM PACKET PO PRN (16:22)
[2020-03-14 19:10] VITALS: BP 113/57
[2020-03-14] MEDS: BUDESONIDE 0.5 MG/2 ML INHA NPPB SCH (20:45)
[2020-03-15 00:50] VITALS: BP 112/65
[2020-03-15] MEDS: HEPARIN 5,000 UNITS/ML, 1ML SQ SCH ×3 (01:07→17:41)
[2020-03-15] MEDS: ALBUTEROL SULFATE 2.5 MG/3 ML NPPB SCH ×4 (02:08→19:57)
[2020-03-15] MEDS: NS + 20MEQ KCL 1,000 ML IV SCH (02:39)
[2020-03-15] MEDS: OXYcodone IR 5MG TABLET PO PRN ×5 (02:40→19:32)
[2020-03-15 05:04] LABS: MEAN CORPUSCULAR HEMOGLOBIN 22.9 pg (27.0-34.8); MEAN CORPUSCULAR HGB CONC 30.6 g/dL (32.4-35.8); PLATELET COUNT 485 x10^3/uL (130-400); RED BLOOD COUNT 3.85 x10^6/uL (3.82-5.3)
[2020-03-15 05:08] LABS: ANION GAP 4 mmol/L (5-15); CALCIUM 9.2 mg/dL (8.5-10.1); CHLORIDE 93 mmol/L (98-107)
[2020-03-15 05:10] LABS: CREATININE 0.41 mg/dL (0.55-1.02)
[2020-03-15 05:49] LABS: BASOPHILS # (AUTO) 0.02 x10^3/uL (0-0.1); BASOPHILS % (AUTO) 0 % (0-1); EOSINOPHILS % (AUTO) 0 % (1-7); LYMPHOCYTES # (AUTO) 0.93 x10^3/uL (1-3.4); LYMPHOCYTES % (AUTO) 7 % (22-44); MD SCAN; MONOCYTES # (AUTO) 0.55 x10^3/uL (0.2-0.8); MONOCYTES % (AUTO) 4 % (2-9); NEUTROPHILS % (AUTO) 89 % (42-75)
[2020-03-15] MEDS: INSULIN LISPRO 100 UNITS/ML, PEN SQ-INSULIN SCH ×4 (07:55→20:47)
[2020-03-15 08:51] VITALS: BP 113/69
[2020-03-15] MEDS: SENNA/DOCUSATE TABLET PO SCH (09:06)
[2020-03-15] MEDS: FAMOTIDINE 20 MG TABLET PO SCH (09:07)
[2020-03-15] MEDS: TIOTROPIUM BROMIDE 18 MCG/INH INH SCH (09:07)
[2020-03-15] MEDS: ESCITALOPRAM 10MG TABLET PO SCH (09:07)
[2020-03-15] MEDS: BUDESONIDE 0.5 MG/2 ML INHA NPPB SCH ×2 (09:50→19:57)
[2020-03-15] MEDS: ACETAMINOPHEN 325 MG TABLET PO PRN (10:33)
[2020-03-15 12:56] VITALS: BP 93/53
[2020-03-15] MEDS ORDERED: OXYcodone 5 MG/5 ML ORAL.SOL UDC ONE (14:33)
[2020-03-15 18:53] VITALS: BP 99/62
[2020-03-16] MEDS: OXYcodone IR 5MG TABLET PO PRN ×6 (00:18→21:21)
[2020-03-16] MEDS: HEPARIN 5,000 UNITS/ML, 1ML SQ SCH ×3 (01:08→16:59)
[2020-03-16 01:14] VITALS: BP 104/59
[2020-03-16] MEDS: ACETAMINOPHEN 325 MG TABLET PO PRN (01:19)
[2020-03-16] MEDS: ALBUTEROL SULFATE 2.5 MG/3 ML NPPB SCH ×4 (02:30→19:35)
[2020-03-16 05:10] LABS: ANION GAP 4 mmol/L (5-15); CALCIUM 9.1 mg/dL (8.5-10.1); CHLORIDE 90 mmol/L (98-107); CREATININE 0.51 mg/dL (0.55-1.02); MEAN CORPUSCULAR HGB CONC 30.8 g/dL (32.4-35.8); MEAN CORPUSCULAR VOLUME 74.8 fL (80-100); MEAN PLATELET VOLUME 7.3 fL (7.4-10.4); PLATELET COUNT 385 x10^3/uL (130-400); RED BLOOD COUNT 3.84 x10^6/uL (3.82-5.3); RED CELL DISTRIBUTION WIDTH 20.8 % (9.6-15.2)
[2020-03-16 05:48] LABS: BASOPHILS # (AUTO) 0.02 x10^3/uL (0-0.1); BASOPHILS % (AUTO) 0 % (0-1); EOSINOPHILS # (AUTO) 0.02 x10^3/uL (0-0.4); EOSINOPHILS % (AUTO) 0 % (1-7); LYMPHOCYTES # (AUTO) 1.08 x10^3/uL (1-3.4); LYMPHOCYTES % (AUTO) 7 % (22-44); MD SCAN; MONOCYTES # (AUTO) 0.33 x10^3/uL (0.2-0.8); MONOCYTES % (AUTO) 2 % (2-9); NEUTROPHILS # (AUTO) 13.09 x10^3/uL (1.8-6.8); NEUTROPHILS % (AUTO) 90 % (42-75)
[2020-03-16 06:53] VITALS: BP 116/64
[2020-03-16] MEDS: INSULIN LISPRO 100 UNITS/ML, PEN SQ-INSULIN SCH ×4 (07:57→20:50)
[2020-03-16] MEDS: TIOTROPIUM BROMIDE 18 MCG/INH INH SCH (08:46)
[2020-03-16] MEDS: FAMOTIDINE 20 MG TABLET PO SCH (08:46)
[2020-03-16] MEDS: SENNA/DOCUSATE TABLET PO SCH (08:46)
[2020-03-16] MEDS: ESCITALOPRAM 10MG TABLET PO SCH (08:46)
[2020-03-16] MEDS: BUDESONIDE 0.5 MG/2 ML INHA NPPB SCH ×2 (09:00→19:35)
[2020-03-16] MEDS: FENTANYL REMOVE PATCH NOTE XX SCH (12:59)
[2020-03-16] MEDS: FENTANYL 50 MCG PATCH TD SCH (13:04)
[2020-03-16] MEDS: POLYETHYLENE GLYCOL 17 GM PACKET PO PRN (13:04)
[2020-03-16 13:05] VITALS: BP 122/67
[2020-03-16] MEDS ORDERED: FENT1PAT76 TD (16:48)
[2020-03-16 19:14] VITALS: BP 95/57
[2020-03-17] MEDS: OXYcodone IR 5MG TABLET PO PRN ×5 (01:15→20:28)
[2020-03-17] MEDS: HEPARIN 5,000 UNITS/ML, 1ML SQ SCH ×3 (01:15→16:27)
[2020-03-17 01:59] VITALS: BP 99/57
[2020-03-17] MEDS: ALBUTEROL SULFATE 2.5 MG/3 ML NPPB SCH ×4 (03:00→20:45)
[2020-03-17] MEDS: BUDESONIDE 0.5 MG/2 ML INHA NPPB SCH ×2 (07:09→20:44)
[2020-03-17 07:13] VITALS: BP 95/60
[2020-03-17] MEDS: INSULIN LISPRO 100 UNITS/ML, PEN SQ-INSULIN SCH ×4 (08:47→20:53)
[2020-03-17] MEDS: FAMOTIDINE 20 MG TABLET PO SCH (08:48)
[2020-03-17] MEDS: TIOTROPIUM BROMIDE 18 MCG/INH INH SCH (08:48)
[2020-03-17] MEDS: ESCITALOPRAM 10MG TABLET PO SCH (08:49)
[2020-03-17] MEDS: SENNA/DOCUSATE TABLET PO SCH (08:49)
[2020-03-17 13:20] VITALS: BP 101/68
--- NOTE | 2020-03-17 16:13 | NUR ---
Green activity sheet initiated: 1 sit up in chair for all meals 2 walk with walker and nurses 2-3 times a day Addendum: 03/17/20 at 1614 by Camila Pope PT Amended: Links added.
[2020-03-17] MEDS: METHYLNALTREXONE 12 MG/0.6 ML SYR SQ SCH (16:27)
[2020-03-17 19:08] VITALS: BP 118/74
[2020-03-18] MEDS: OXYcodone IR 5MG TABLET PO PRN ×6 (00:41→21:09)
[2020-03-18] MEDS: HEPARIN 5,000 UNITS/ML, 1ML SQ SCH ×3 (00:42→17:05)
[2020-03-18 00:45] VITALS: BP 122/57
[2020-03-18] MEDS: ALBUTEROL SULFATE 2.5 MG/3 ML NPPB SCH ×4 (02:14→19:15)
[2020-03-18 08:15] VITALS: BP 101/54
[2020-03-18] MEDS: ESCITALOPRAM 10MG TABLET PO SCH (08:38)
[2020-03-18] MEDS: SENNA/DOCUSATE TABLET PO SCH (08:38)
[2020-03-18] MEDS: FAMOTIDINE 20 MG TABLET PO SCH (08:38)
[2020-03-18] MEDS: INSULIN LISPRO 100 UNITS/ML, PEN SQ-INSULIN SCH ×4 (08:41→21:12)
[2020-03-18] MEDS: TIOTROPIUM BROMIDE 18 MCG/INH INH SCH (09:00)
[2020-03-18] MEDS: BUDESONIDE 0.5 MG/2 ML INHA NPPB SCH ×2 (11:30→19:15)
[2020-03-18 14:34] VITALS: BP 100/64
[2020-03-18] MEDS: AMOXICILLIN/CLAV 875-125MG TABLET PO SCH (17:05)
[2020-03-18 19:17] VITALS: BP 104/63
[2020-03-19 00:16] VITALS: BP 104/64
[2020-03-19] MEDS: HEPARIN 5,000 UNITS/ML, 1ML SQ SCH ×3 (01:20→16:29)
[2020-03-19] MEDS: OXYcodone IR 5MG TABLET PO PRN ×6 (01:20→21:42)
[2020-03-19] MEDS: ALBUTEROL SULFATE 2.5 MG/3 ML NPPB SCH ×4 (03:43→21:00)
[2020-03-19] MEDS: AMOXICILLIN/CLAV 875-125MG TABLET PO SCH ×2 (05:29→16:28)
[2020-03-19] MEDS: BUDESONIDE 0.5 MG/2 ML INHA NPPB SCH ×2 (06:50→19:10)
[2020-03-19 08:06] VITALS: BP 99/66
[2020-03-19] MEDS: FAMOTIDINE 20 MG TABLET PO SCH (08:12)
[2020-03-19] MEDS: SENNA/DOCUSATE TABLET PO SCH (08:12)
[2020-03-19] MEDS: ESCITALOPRAM 10MG TABLET PO SCH (08:12)
[2020-03-19] MEDS: TIOTROPIUM BROMIDE 18 MCG/INH INH SCH (08:13)
[2020-03-19] MEDS: INSULIN LISPRO 100 UNITS/ML, PEN SQ-INSULIN SCH ×4 (08:13→20:22)
[2020-03-19] MEDS: FENTANYL REMOVE PATCH NOTE XX SCH (12:59)
[2020-03-19] MEDS: FENTANYL 50 MCG PATCH TD SCH (13:30)
[2020-03-19 13:36] VITALS: BP 96/60
[2020-03-19] MEDS: METHYLNALTREXONE 12 MG/0.6 ML SYR SQ SCH (16:29)
[2020-03-19 18:36] VITALS: BP 116/63
[2020-03-20 00:38] VITALS: BP 114/71
[2020-03-20] MEDS: OXYcodone IR 5MG TABLET PO PRN ×5 (01:21→18:17)
[2020-03-20] MEDS: HEPARIN 5,000 UNITS/ML, 1ML SQ SCH ×3 (01:21→17:22)
[2020-03-20] MEDS: ALBUTEROL SULFATE 2.5 MG/3 ML NPPB SCH ×5 (02:27→20:34)
[2020-03-20] MEDS: AMOXICILLIN/CLAV 875-125MG TABLET PO SCH ×2 (05:01→17:22)
[2020-03-20 05:24] LABS: BASOPHILS % (AUTO) 0 % (0-1); EOSINOPHILS # (AUTO) 0.08 x10^3/uL (0-0.4); EOSINOPHILS % (AUTO) 1 % (1-7); LYMPHOCYTES # (AUTO) 0.99 x10^3/uL (1-3.4); LYMPHOCYTES % (AUTO) 7 % (22-44); MD NO; MEAN CORPUSCULAR HEMOGLOBIN 22.8 pg (27.0-34.8); MEAN CORPUSCULAR HGB CONC 31.1 g/dL (32.4-35.8); MEAN CORPUSCULAR VOLUME 73.4 fL (80-100); MEAN PLATELET VOLUME 7.8 fL (7.4-10.4); MONOCYTES # (AUTO) 1.16 x10^3/uL (0.2-0.8); MONOCYTES % (AUTO) 9 % (2-9); NEUTROPHILS % (AUTO) 83 % (42-75); PLATELET COUNT 369 x10^3/uL (130-400); RED BLOOD COUNT 3.41 x10^6/uL (3.82-5.3); RED CELL DISTRIBUTION WIDTH 20.2 % (9.6-15.2)
[2020-03-20 05:27] LABS: ANION GAP 2 mmol/L (5-15); CALCIUM 9.4 mg/dL (8.5-10.1); CHLORIDE 88 mmol/L (98-107)
[2020-03-20 07:59] VITALS: BP 94/60
[2020-03-20] MEDS: INSULIN LISPRO 100 UNITS/ML, PEN SQ-INSULIN SCH ×4 (08:31→20:23)
[2020-03-20] MEDS: ESCITALOPRAM 10MG TABLET PO SCH (08:32)
[2020-03-20] MEDS: FAMOTIDINE 20 MG TABLET PO SCH (08:32)
[2020-03-20] MEDS: SENNA/DOCUSATE TABLET PO SCH (08:32)
[2020-03-20] MEDS: TIOTROPIUM BROMIDE 18 MCG/INH INH SCH (08:33)
[2020-03-20] MEDS: BUDESONIDE 0.5 MG/2 ML INHA NPPB SCH ×2 (09:50→21:00)
[2020-03-20] MEDS: ACETAMINOPHEN 325 MG TABLET PO PRN (10:17)
[2020-03-20 12:35] VITALS: BP 98/61
[2020-03-20 19:06] VITALS: BP 113/61
[2020-03-21 00:53] VITALS: BP 98/65
[2020-03-21] MEDS: HEPARIN 5,000 UNITS/ML, 1ML SQ SCH ×3 (01:25→17:03)
[2020-03-21] MEDS: OXYcodone IR 5MG TABLET PO PRN ×5 (01:56→21:15)
[2020-03-21] MEDS: ALBUTEROL SULFATE 2.5 MG/3 ML NPPB SCH ×4 (03:00→18:58)
[2020-03-21] MEDS: AMOXICILLIN/CLAV 875-125MG TABLET PO SCH ×2 (04:43→17:03)
[2020-03-21 05:20] LABS: ANION GAP 3 mmol/L (5-15); BASOPHILS # (AUTO) 0.02 x10^3/uL (0-0.1); BASOPHILS % (AUTO) 0 % (0-1); CALCIUM 9.8 mg/dL (8.5-10.1); CHLORIDE 87 mmol/L (98-107); CREATININE 0.49 mg/dL (0.55-1.02); EOSINOPHILS # (AUTO) 0.02 x10^3/uL (0-0.4); EOSINOPHILS % (AUTO) 0 % (1-7); LYMPHOCYTES # (AUTO) 0.93 x10^3/uL (1-3.4); LYMPHOCYTES % (AUTO) 5 % (22-44); MD NO; MEAN CORPUSCULAR HEMOGLOBIN 22.8 pg (27.0-34.8); MEAN CORPUSCULAR HGB CONC 30.8 g/dL (32.4-35.8); MEAN PLATELET VOLUME 7.7 fL (7.4-10.4); MONOCYTES # (AUTO) 1.24 x10^3/uL (0.2-0.8); MONOCYTES % (AUTO) 7 % (2-9); NEUTROPHILS # (AUTO) 14.89 x10^3/uL (1.8-6.8); NEUTROPHILS % (AUTO) 87 % (42-75); PLATELET COUNT 389 x10^3/uL (130-400); RED BLOOD COUNT 3.49 x10^6/uL (3.82-5.3); RED CELL DISTRIBUTION WIDTH 20.2 % (9.6-15.2)
[2020-03-21 07:03] VITALS: BP 93/57
[2020-03-21] MEDS: FAMOTIDINE 20 MG TABLET PO SCH (07:45)
[2020-03-21] MEDS: SENNA/DOCUSATE TABLET PO SCH (07:45)
[2020-03-21] MEDS: TIOTROPIUM BROMIDE 18 MCG/INH INH SCH (07:46)
[2020-03-21] MEDS: ESCITALOPRAM 10MG TABLET PO SCH (07:46)
[2020-03-21] MEDS: INSULIN LISPRO 100 UNITS/ML, PEN SQ-INSULIN SCH ×4 (07:48→21:14)
[2020-03-21] MEDS: BUDESONIDE 0.5 MG/2 ML INHA NPPB SCH ×2 (09:45→18:53)
[2020-03-21 13:10] VITALS: BP 105/65
[2020-03-21 14:11] LABS: MICROSCOPIC NOT IND
[2020-03-21] MEDS: ACETAMINOPHEN 325 MG TABLET PO PRN (14:58)
[2020-03-21] MEDS: METHYLNALTREXONE 12 MG/0.6 ML SYR SQ SCH (16:20)
[2020-03-21 19:01] LABS: OCCULT BLOOD NEGATIVE (NEGATIVE)
[2020-03-21 19:10] VITALS: BP 112/72
[2020-03-22 00:43] VITALS: BP 123/77
[2020-03-22] MEDS: HEPARIN 5,000 UNITS/ML, 1ML SQ SCH ×3 (01:19→16:21)
[2020-03-22] MEDS: OXYcodone IR 5MG TABLET PO PRN ×4 (01:20→19:55)
[2020-03-22] MEDS: ALBUTEROL SULFATE 2.5 MG/3 ML NPPB SCH ×4 (03:00→19:50)
[2020-03-22] MEDS: AMOXICILLIN/CLAV 875-125MG TABLET PO SCH ×2 (04:58→16:21)
[2020-03-22 05:33] LABS: BASOPHILS % (AUTO) 0 % (0-1); EOSINOPHILS # (AUTO) 0.09 x10^3/uL (0-0.4); EOSINOPHILS % (AUTO) 1 % (1-7); LYMPHOCYTES # (AUTO) 0.85 x10^3/uL (1-3.4); LYMPHOCYTES % (AUTO) 6 % (22-44); MD NO; MEAN CORPUSCULAR VOLUME 74.2 fL (80-100); MEAN PLATELET VOLUME 7.4 fL (7.4-10.4); MONOCYTES # (AUTO) 1.13 x10^3/uL (0.2-0.8); MONOCYTES % (AUTO) 8 % (2-9); NEUTROPHILS # (AUTO) 12.65 x10^3/uL (1.8-6.8); NEUTROPHILS % (AUTO) 86 % (42-75); PLATELET COUNT 463 x10^3/uL (130-400); RED CELL DISTRIBUTION WIDTH 20.6 % (9.6-15.2)
[2020-03-22 05:44] LABS: ANION GAP 4 mmol/L (5-15); CALCIUM 9.9 mg/dL (8.5-10.1); CHLORIDE 90 mmol/L (98-107); CREATININE 0.53 mg/dL (0.55-1.02)
[2020-03-22] MEDS: BUDESONIDE 0.5 MG/2 ML INHA NPPB SCH ×2 (07:31→19:51)
[2020-03-22] MEDS: INSULIN LISPRO 100 UNITS/ML, PEN SQ-INSULIN SCH ×4 (08:05→19:55)
[2020-03-22] MEDS: ESCITALOPRAM 10MG TABLET PO SCH (08:08)
[2020-03-22] MEDS: FAMOTIDINE 20 MG TABLET PO SCH (08:08)
[2020-03-22] MEDS: SENNA/DOCUSATE TABLET PO SCH (08:08)
[2020-03-22] MEDS: TIOTROPIUM BROMIDE 18 MCG/INH INH SCH (08:10)
[2020-03-22 08:36] VITALS: BP 97/65
[2020-03-22] MEDS: FENTANYL REMOVE PATCH NOTE XX SCH (12:59)
[2020-03-22 13:15] VITALS: BP 92/54
[2020-03-22] MEDS: FENTANYL 50 MCG PATCH TD SCH (13:36)
[2020-03-22 19:38] VITALS: BP 96/54
[2020-03-23] MEDS: OXYcodone IR 5MG TABLET PO PRN ×4 (00:58→21:08)
[2020-03-23] MEDS: HEPARIN 5,000 UNITS/ML, 1ML SQ SCH ×3 (00:58→17:01)
[2020-03-23 01:56] VITALS: BP 98/50
[2020-03-23] MEDS: AMOXICILLIN/CLAV 875-125MG TABLET PO SCH ×2 (05:16→17:00)
[2020-03-23] MEDS: BUDESONIDE 0.5 MG/2 ML INHA NPPB SCH ×2 (07:00→20:00)
[2020-03-23] MEDS: ALBUTEROL SULFATE 2.5 MG/3 ML NPPB SCH ×4 (07:00→20:00)
[2020-03-23 07:49] VITALS: BP 100/62
[2020-03-23] MEDS: ESCITALOPRAM 10MG TABLET PO SCH (09:31)
[2020-03-23] MEDS: FAMOTIDINE 20 MG TABLET PO SCH ×2 (09:31→21:24)
[2020-03-23] MEDS: SENNA/DOCUSATE TABLET PO SCH (09:31)
[2020-03-23] MEDS: TIOTROPIUM BROMIDE 18 MCG/INH INH SCH (09:33)
[2020-03-23] MEDS: INSULIN LISPRO 100 UNITS/ML, PEN SQ-INSULIN SCH ×4 (09:42→21:26)
[2020-03-23] MEDS: ACETAMINOPHEN 325 MG TABLET PO PRN ×2 (12:10→21:25)
[2020-03-23 14:00] VITALS: BP 112/59
[2020-03-23 15:05] LABS: OCCULT BLOOD NEGATIVE (NEGATIVE)
[2020-03-23] MEDS: METHYLNALTREXONE 12 MG/0.6 ML SYR SQ SCH (17:00)
[2020-03-23 19:07] VITALS: BP 92/52
[2020-03-24] MEDS: HEPARIN 5,000 UNITS/ML, 1ML SQ SCH ×3 (01:45→17:55)
[2020-03-24] MEDS: OXYcodone IR 5MG TABLET PO PRN ×2 (01:45→21:28)
[2020-03-24] MEDS: AMOXICILLIN/CLAV 875-125MG TABLET PO SCH ×2 (04:32→17:54)
[2020-03-24 04:41] VITALS: BP 106/66
[2020-03-24] MEDS: ALBUTEROL SULFATE 2.5 MG/3 ML NPPB SCH ×4 (07:00→19:00)
[2020-03-24] MEDS: INSULIN LISPRO 100 UNITS/ML, PEN SQ-INSULIN SCH ×4 (07:00→21:29)
[2020-03-24 07:06] VITALS: BP 98/59
[2020-03-24] MEDS: BUDESONIDE 0.5 MG/2 ML INHA NPPB SCH ×2 (07:30→19:00)
[2020-03-24] MEDS: ESCITALOPRAM 10MG TABLET PO SCH (10:37)
[2020-03-24] MEDS: FAMOTIDINE 20 MG TABLET PO SCH ×2 (10:37→21:28)
[2020-03-24] MEDS: SENNA/DOCUSATE TABLET PO SCH (10:37)
[2020-03-24] MEDS: TIOTROPIUM BROMIDE 18 MCG/INH INH SCH (10:39)
[2020-03-24 15:18] VITALS: BP 102/67
[2020-03-24] MEDS: ACETAMINOPHEN 325 MG TABLET PO PRN (17:54)
[2020-03-24 19:03] VITALS: BP 96/58
[2020-03-25] MEDS: ACETAMINOPHEN 325 MG TABLET PO PRN ×2 (01:10→14:31)
[2020-03-25] MEDS: HEPARIN 5,000 UNITS/ML, 1ML SQ SCH ×3 (01:12→16:14)
[2020-03-25 01:20] VITALS: BP 116/62
[2020-03-25] MEDS: AMOXICILLIN/CLAV 875-125MG TABLET PO SCH (04:52)
[2020-03-25] MEDS: OXYcodone IR 5MG TABLET PO PRN ×3 (04:54→20:48)
[2020-03-25] MEDS: BUDESONIDE 0.5 MG/2 ML INHA NPPB SCH ×2 (06:40→19:35)
[2020-03-25] MEDS: ALBUTEROL SULFATE 2.5 MG/3 ML NPPB SCH (06:40)
[2020-03-25] MEDS: INSULIN LISPRO 100 UNITS/ML, PEN SQ-INSULIN SCH ×4 (08:03→20:47)
[2020-03-25] MEDS: SENNA/DOCUSATE TABLET PO SCH (08:04)
[2020-03-25] MEDS: ESCITALOPRAM 10MG TABLET PO SCH (08:04)
[2020-03-25] MEDS: FAMOTIDINE 20 MG TABLET PO SCH ×2 (08:04→20:48)
[2020-03-25] MEDS: TIOTROPIUM BROMIDE 18 MCG/INH INH SCH (08:05)
[2020-03-25 08:08] VITALS: BP 98/62
[2020-03-25 08:17] LABS: MEAN CORPUSCULAR HEMOGLOBIN 22.9 pg (27.0-34.8); MEAN CORPUSCULAR HGB CONC 30.5 g/dL (32.4-35.8); MEAN CORPUSCULAR VOLUME 75.2 fL (80-100); MEAN PLATELET VOLUME 6.9 fL (7.4-10.4); PLATELET COUNT 568 x10^3/uL (130-400); RED BLOOD COUNT 3.34 x10^6/uL (3.82-5.3); RED CELL DISTRIBUTION WIDTH 21.1 % (9.6-15.2)
[2020-03-25 08:25] LABS: ANION GAP 2 mmol/L (5-15); CHLORIDE 92 mmol/L (98-107); CREATININE 0.32 mg/dL (0.55-1.02)
[2020-03-25 08:54] LABS: BASOPHILS # (AUTO) 0.04 x10^3/uL (0-0.1); BASOPHILS % (AUTO) 0 % (0-1); EOSINOPHILS # (AUTO) 0.01 x10^3/uL (0-0.4); EOSINOPHILS % (AUTO) 0 % (1-7); LYMPHOCYTES # (AUTO) 0.78 x10^3/uL (1-3.4); LYMPHOCYTES % (AUTO) 5 % (22-44); MD SCAN; MONOCYTES # (AUTO) 0.71 x10^3/uL (0.2-0.8); MONOCYTES % (AUTO) 4 % (2-9); NEUTROPHILS # (AUTO) 14.42 x10^3/uL (1.8-6.8); NEUTROPHILS % (AUTO) 90 % (42-75)
[2020-03-25] MEDS ORDERED: IPRATROPIUM 0.5 MG/2.5 ML INHA HHN SCH (09:00)
[2020-03-25] MEDS: ALBUTEROL/IPRATROPIUM 2.5MG/0.5MG, 3 ML NPPB SCH ×3 (10:10→19:35)
[2020-03-25 13:55] VITALS: BP 105/59
[2020-03-25] MEDS: METHYLNALTREXONE 12 MG/0.6 ML SYR SQ SCH (16:14)
[2020-03-25 19:51] VITALS: BP 118/48
[2020-03-25] MEDS ORDERED: FAMOTIDINE 40 MG TABLET ONE (20:44)
[2020-03-26] MEDS: HEPARIN 5,000 UNITS/ML, 1ML SQ SCH ×3 (01:12→16:02)
[2020-03-26 01:13] VITALS: BP 108/60
[2020-03-26] MEDS: OXYcodone IR 5MG TABLET PO PRN ×2 (02:53→09:16)
[2020-03-26 05:46] LABS: BASOPHILS # (AUTO) 0.01 x10^3/uL (0-0.1); BASOPHILS % (AUTO) 0 % (0-1); EOSINOPHILS # (AUTO) 0.02 x10^3/uL (0-0.4); EOSINOPHILS % (AUTO) 0 % (1-7); LYMPHOCYTES # (AUTO) 1.03 x10^3/uL (1-3.4); LYMPHOCYTES % (AUTO) 6 % (22-44); MD NO; MEAN CORPUSCULAR HEMOGLOBIN 22.8 pg (27.0-34.8); MEAN CORPUSCULAR VOLUME 73.4 fL (80-100); MEAN PLATELET VOLUME 7.2 fL (7.4-10.4); MONOCYTES % (AUTO) 4 % (2-9); NEUTROPHILS # (AUTO) 14.44 x10^3/uL (1.8-6.8); NEUTROPHILS % (AUTO) 90 % (42-75); PLATELET COUNT 570 x10^3/uL (130-400); RED BLOOD COUNT 3.46 x10^6/uL (3.82-5.3); RED CELL DISTRIBUTION WIDTH 20.7 % (9.6-15.2)
[2020-03-26 05:55] LABS: ANION GAP 2 mmol/L (5-15); CALCIUM 10.5 mg/dL (8.5-10.1); CHLORIDE 90 mmol/L (98-107)
[2020-03-26] MEDS: ALBUTEROL/IPRATROPIUM 2.5MG/0.5MG, 3 ML NPPB SCH ×4 (06:45→19:00)
[2020-03-26] MEDS: BUDESONIDE 0.5 MG/2 ML INHA NPPB SCH ×2 (06:45→19:00)
[2020-03-26 06:53] VITALS: BP 105/56
[2020-03-26] MEDS: INSULIN LISPRO 100 UNITS/ML, PEN SQ-INSULIN SCH ×4 (07:00→22:01)
[2020-03-26] MEDS: FAMOTIDINE 20 MG TABLET PO SCH ×2 (09:15→22:01)
[2020-03-26] MEDS: ESCITALOPRAM 10MG TABLET PO SCH (09:15)
[2020-03-26] MEDS: SENNA/DOCUSATE TABLET PO SCH (09:15)
[2020-03-26 12:52] VITALS: BP 100/68
[2020-03-26] MEDS: ACETAMINOPHEN 325 MG TABLET PO PRN (16:44)
[2020-03-26] MEDS: KETOROLAC 30 MG/1 ML IM PRN (18:23)
[2020-03-26 18:57] VITALS: BP 112/46
[2020-03-27 00:29] VITALS: BP 116/58
[2020-03-27] MEDS: HEPARIN 5,000 UNITS/ML, 1ML SQ SCH ×3 (00:32→17:57)
[2020-03-27] MEDS: KETOROLAC 30 MG/1 ML IM PRN ×4 (00:32→19:32)
[2020-03-27 06:34] LABS: BASOPHILS # (AUTO) 0.01 x10^3/uL (0-0.1); BASOPHILS % (AUTO) 0 % (0-1); EOSINOPHILS # (AUTO) 0.13 x10^3/uL (0-0.4); EOSINOPHILS % (AUTO) 1 % (1-7); LYMPHOCYTES # (AUTO) 0.97 x10^3/uL (1-3.4); LYMPHOCYTES % (AUTO) 7 % (22-44); MD NO; MEAN CORPUSCULAR HEMOGLOBIN 22.9 pg (27.0-34.8); MEAN CORPUSCULAR VOLUME 73.9 fL (80-100); MEAN PLATELET VOLUME 7.2 fL (7.4-10.4); MONOCYTES # (AUTO) 0.61 x10^3/uL (0.2-0.8); MONOCYTES % (AUTO) 4 % (2-9); NEUTROPHILS # (AUTO) 12.88 x10^3/uL (1.8-6.8); NEUTROPHILS % (AUTO) 88 % (42-75); PLATELET COUNT 548 x10^3/uL (130-400); RED BLOOD COUNT 3.53 x10^6/uL (3.82-5.3); RED CELL DISTRIBUTION WIDTH 20.5 % (9.6-15.2)
[2020-03-27 06:45] LABS: ANION GAP 5 mmol/L (5-15); CALCIUM 10.9 mg/dL (8.5-10.1); CHLORIDE 91 mmol/L (98-107); CREATININE 0.37 mg/dL (0.55-1.02)
[2020-03-27] MEDS: BUDESONIDE 0.5 MG/2 ML INHA NPPB SCH ×2 (06:58→20:09)
[2020-03-27] MEDS: ALBUTEROL/IPRATROPIUM 2.5MG/0.5MG, 3 ML NPPB SCH ×4 (06:58→20:09)
[2020-03-27] MEDS: INSULIN LISPRO 100 UNITS/ML, PEN SQ-INSULIN SCH ×4 (07:00→21:00)
[2020-03-27 09:23] VITALS: BP 95/60
[2020-03-27] MEDS: ESCITALOPRAM 10MG TABLET PO SCH (10:22)
[2020-03-27] MEDS: SENNA/DOCUSATE TABLET PO SCH (10:22)
[2020-03-27] MEDS: FAMOTIDINE 20 MG TABLET PO SCH ×2 (10:22→21:06)
[2020-03-27 14:54] VITALS: BP 115/48
[2020-03-27] MEDS: METHYLNALTREXONE 12 MG/0.6 ML SYR SQ SCH (17:57)
[2020-03-27 18:17] VITALS: BP 133/80
[2020-03-27] MEDS: ACETAMINOPHEN 325 MG TABLET PO PRN (22:24)
[2020-03-28 00:32] VITALS: BP 121/59
[2020-03-28] MEDS: KETOROLAC 30 MG/1 ML IM PRN ×4 (01:38→20:28)
[2020-03-28] MEDS: ACETAMINOPHEN 325 MG TABLET PO PRN ×3 (01:38→20:29)
[2020-03-28] MEDS: HEPARIN 5,000 UNITS/ML, 1ML SQ SCH ×3 (01:39→16:54)
[2020-03-28 06:24] LABS: MEAN CORPUSCULAR HEMOGLOBIN 22.6 pg (27.0-34.8); MEAN CORPUSCULAR HGB CONC 30.2 g/dL (32.4-35.8); MEAN CORPUSCULAR VOLUME 74.9 fL (80-100); MEAN PLATELET VOLUME 6.9 fL (7.4-10.4); PLATELET COUNT 640 x10^3/uL (130-400); RED BLOOD COUNT 4.33 x10^6/uL (3.82-5.3); RED CELL DISTRIBUTION WIDTH 20.5 % (9.6-15.2)
[2020-03-28 06:38] LABS: ANION GAP 5 mmol/L (5-15); CALCIUM 11.4 mg/dL (8.5-10.1); CHLORIDE 89 mmol/L (98-107); CREATININE 0.49 mg/dL (0.55-1.02)
[2020-03-28] MEDS: INSULIN LISPRO 100 UNITS/ML, PEN SQ-INSULIN SCH ×4 (07:00→20:22)
[2020-03-28] MEDS: ALBUTEROL/IPRATROPIUM 2.5MG/0.5MG, 3 ML NPPB SCH ×4 (07:00→19:00)
[2020-03-28 07:29] LABS: BASOPHILS # (AUTO) 0.01 x10^3/uL (0-0.1); BASOPHILS % (AUTO) 0 % (0-1); EOSINOPHILS # (AUTO) 0.07 x10^3/uL (0-0.4); EOSINOPHILS % (AUTO) 0 % (1-7); LYMPHOCYTES # (AUTO) 1.12 x10^3/uL (1-3.4); LYMPHOCYTES % (AUTO) 6 % (22-44); MD SCAN; MONOCYTES # (AUTO) 0.57 x10^3/uL (0.2-0.8); MONOCYTES % (AUTO) 3 % (2-9); NEUTROPHILS # (AUTO) 16.54 x10^3/uL (1.8-6.8); NEUTROPHILS % (AUTO) 90 % (42-75)
[2020-03-28 07:45] VITALS: BP 124/68
[2020-03-28] MEDS: ESCITALOPRAM 10MG TABLET PO SCH (07:54)
[2020-03-28] MEDS: FAMOTIDINE 20 MG TABLET PO SCH ×2 (07:54→20:29)
[2020-03-28] MEDS: IRON SUCROSE COMPLEX 100MG/5ML IV SCH (07:54)
[2020-03-28] MEDS: SENNA/DOCUSATE TABLET PO SCH ×2 (07:58→08:10)
[2020-03-28] MEDS: BUDESONIDE 0.5 MG/2 ML INHA NPPB SCH ×2 (08:06→19:00)
[2020-03-28 10:26] LABS: OCCULT BLOOD NEGATIVE (NEGATIVE)
[2020-03-28 13:08] VITALS: BP 116/73
[2020-03-28] MEDS: LORATADINE 10 MG TABLET PO SCH (14:28)
[2020-03-28 17:29] LABS: MICROSCOPIC INDICATED
[2020-03-28 19:33] VITALS: BP 123/74
[2020-03-28] MEDS ORDERED: OMNIPAQUE 350 MG/ML, 100ML BOTTLE ONE (21:45)
[2020-03-29] MEDS: ACETAMINOPHEN 325 MG TABLET PO PRN ×2 (00:34→07:57)
[2020-03-29] MEDS: HEPARIN 5,000 UNITS/ML, 1ML SQ SCH ×2 (00:36→07:57)
[2020-03-29 00:54] VITALS: BP 127/76
[2020-03-29] MEDS: KETOROLAC 30 MG/1 ML IM PRN ×3 (03:02→16:36)
[2020-03-29 06:20] LABS: ANION GAP 5 mmol/L (5-15); CALCIUM 10.9 mg/dL (8.5-10.1); CHLORIDE 91 mmol/L (98-107); CREATININE 0.48 mg/dL (0.55-1.02)
[2020-03-29 06:30] LABS: BASOPHILS # (AUTO) 0.04 x10^3/uL (0-0.1); BASOPHILS % (AUTO) 0 % (0-1); EOSINOPHILS # (AUTO) 0.04 x10^3/uL (0-0.4); EOSINOPHILS % (AUTO) 0 % (1-7); LYMPHOCYTES # (AUTO) 1.07 x10^3/uL (1-3.4); LYMPHOCYTES % (AUTO) 7 % (22-44); MD NO; MEAN CORPUSCULAR HEMOGLOBIN 22.5 pg (27.0-34.8); MEAN CORPUSCULAR HGB CONC 30.5 g/dL (32.4-35.8); MEAN CORPUSCULAR VOLUME 73.8 fL (80-100); MEAN PLATELET VOLUME 7.2 fL (7.4-10.4); MONOCYTES # (AUTO) 0.59 x10^3/uL (0.2-0.8); MONOCYTES % (AUTO) 4 % (2-9); NEUTROPHILS # (AUTO) 13.11 x10^3/uL (1.8-6.8); NEUTROPHILS % (AUTO) 88 % (42-75); PLATELET COUNT 562 x10^3/uL (130-400); RED BLOOD COUNT 3.81 x10^6/uL (3.82-5.3); RED CELL DISTRIBUTION WIDTH 20.6 % (9.6-15.2)
[2020-03-29] MEDS: INSULIN LISPRO 100 UNITS/ML, PEN SQ-INSULIN SCH ×3 (07:00→16:00)
[2020-03-29] MEDS: ALBUTEROL/IPRATROPIUM 2.5MG/0.5MG, 3 ML NPPB SCH ×3 (07:20→15:40)
[2020-03-29] MEDS: BUDESONIDE 0.5 MG/2 ML INHA NPPB SCH (07:20)
[2020-03-29] MEDS: FAMOTIDINE 20 MG TABLET PO SCH (07:57)
[2020-03-29] MEDS: LORATADINE 10 MG TABLET PO SCH (07:57)
[2020-03-29] MEDS: ESCITALOPRAM 10MG TABLET PO SCH (07:57)
[2020-03-29] MEDS: IRON SUCROSE COMPLEX 100MG/5ML IV SCH (07:57)
[2020-03-29] MEDS: SENNA/DOCUSATE TABLET PO SCH (07:57)
[2020-03-29] MEDS ORDERED: POTASSIUM CHLORIDE 20 MEQ TAB.ER.PRT PO ONE (08:30)
[2020-03-29 09:11] VITALS: BP 115/69
[2020-03-29 12:39] VITALS: BP 112/71
[2020-03-29] MEDS ORDERED: FERR324T5 PO (13:48)
[2020-03-29] MEDS: METHYLNALTREXONE 12 MG/0.6 ML SYR SQ SCH (15:30)
== END 2020-03-29 19:25 | disposition home or self-care (01) | DRG 139 ==
LOC: ED 22:10 → EDIP 23:25 → 4NW 03-10 13:45 → 3N 03-12 18:47 → 3WST 03-13 18:01
PROVIDERS: ADMIT Family Medicine; ATTEND Internal Medicine
PROC: 02HV33Z Insertion of Infusion Device into Superior Vena Cava, Percutaneous Approach (ICD-10-PCS; principal; 2020-03-10)
PROC: B548ZZA Ultrasonography of Superior Vena Cava, Guidance (ICD-10-PCS; 2020-03-10)
DX: J18.8 Other pneumonia, unspecified organism (principal); J96.21 Acute and chronic respiratory failure with hypoxia; I27.20 Pulmonary hypertension, unspecified; D69.6 Thrombocytopenia, unspecified; E22.2 Syndrome of inappropriate secretion of antidiuretic hormone; C34.90 Malignant neoplasm of unspecified part of unspecified bronchus or lung; E11.65 Type 2 diabetes mellitus with hyperglycemia; J44.0 Chronic obstructive pulmonary disease with (acute) lower respiratory infection; E86.0 Dehydration; S22.32XA Fracture of one rib, left side, initial encounter for closed fracture; G89.29 Other chronic pain; J44.9 Chronic obstructive pulmonary disease, unspecified; G47.33 Obstructive sleep apnea (adult) (pediatric); F32.9 Major depressive disorder, single episode, unspecified; E87.6 Hypokalemia; G89.18 Other acute postprocedural pain; R63.0 Anorexia; J44.1 Chronic obstructive pulmonary disease with (acute) exacerbation; D50.9 Iron deficiency anemia, unspecified; Z20.818 Contact with and (suspected) exposure to other bacterial communicable diseases; F17.210 Nicotine dependence, cigarettes, uncomplicated; Z90.49 Acquired absence of other specified parts of digestive tract; Z90.89 Acquired absence of other organs; Z83.3 Family history of diabetes mellitus; Z82.49 Family history of ischemic heart disease and other diseases of the circulatory system; Z80.1 Family history of malignant neoplasm of trachea, bronchus and lung; Z85.118 Personal history of other malignant neoplasm of bronchus and lung
CPT/HCPCS: 36415; 36573; 36600; 71045; 71275; 74177; 80048; 80053; 81001; 81003; 82272; 82728; 82803; 82962; 83540; 83550; 83605; 83735; 83880; 84100; 84145; 84484; 85025; 85379; 85651; 86140; 86480; 87040; 87086; 93005; 93970; 94640; G0378; J0456; J0696; J1170; J1644; J1756; J1885; J1956; J2310; J2405; J3480; J7613; J7626; Q0162; Q9967; C1751; J1815; J2270; J2930; J7050; U0001-CS